=== PATIENT | male | born 1955 | race Caucasian/White ===

== ENCOUNTER → 2020-01-17 10:06 | Outpatient (CLI) | payer MEDICARE, SELFPAY ==
--- NOTE | 2020-01-17 10:45 | MRI_ITS ---
HISTORY: low back pain and bilat legs x 8 years EXAMINATION: MR Spine Lumbar W/O Contrast. 127 images TECHNIQUE: Multiplanar and multisequence MR images of the lumbar spine. IV Contrast dosage and agent: None. COMPARISON: X-rays of the lumbar spine are available from July 06, 2016. A CT scan of the abdomen and pelvis with sagittal and coronal 2-D reformats that also goes through the lumbar spine is available from July 06, 2013. FINDINGS: VERTEBRAE: Normal vertebral body heights, alignment and lordosis. Some Modic type endplate marrow edema is present on the abutting endplates of the L2-L3 level on the right side. Some fatty marrow endplate changes are present on the anterior left at the L2-L3 level. This disease has progressed since the 2014 CT. No expansile or destructive lesion. CORD: Normal visualized portions of the spinal cord and cauda equina, with the tip of the conus medullaris at the the L1-L2 level. No intradural or intramedullary soft tissue mass or epidural fluid collection. SOFT TISSUES: Hyperintense lesions on both kidneys statistically represent benign cysts. Tortuosity of the abdominal aorta without aneurysm. L1/L2: At the L1-L2 level facet arthropathy, ligamentum thickening contribute to mild spinal canal stenosis L2/L3: Facet arthropathy, ligamentum thickening, and disc protrusion contribute to severe spinal canal stenosis. All of the CSF is displaced out of the dural sac. Neural foraminal disease is also present, the disease is slightly greater on the left than right with possibly an extruded disc fragment. This extruded disc fragment measures 14 x 7 x 11 mm and extends cranially behind the left side of the L2 vertebral body It may be impinging the left L3 nerve in the lateral recess. L3/L4: Facet arthropathy, ligamentum thickening, and disc bulge cause mild spinal canal stenosis L4/L5: Facet arthropathy, ligamentum thickening, and small central disc protrusion cause severe spinal canal stenosis with displacement of all of the CSF out of the dural sac. The disease is slightly greater on the right than left. Both left and right L4-L5 neural foramina are narrowed as well. Due to the light paracentral position and the right L5 nerve could be impinging right lateral recess L5/S1: No disc bulge, central canal stenosis, or neural foraminal stenosis. MRI/Spine Lumbar (Routine) IMPRESSION: Severe spinal canal stenosis at the L2-L3 level due to facet arthropathy, ligamentum thickening, and disc protrusion. There is a left paracentral lateral extruded disc fragment extending up behind the L2 vertebral body measuring 14 x 7 x 11 mm possibly impinging the left L3 nerve in the lateral recess. Severe spinal canal stenosis at the L4-L5 level. This is due to facet arthropathy ligamental thickening in central disc protrusion. This disease is slightly greater on the right than left and may be impinging the right L5 nerve in the lateral recess. at 0235 Reported and signed by: Lennox Mejia MD Electronically Signed: Lennox Mejia MD at 2:34 EDT Tel , Service support ,
== END ==
PROVIDERS: PCP Internal Medicine; Referring Provider Internal Medicine; Visit Provider Internal Medicine
DX: M54.40 Lumbago with sciatica, unspecified side (principal)
CPT/HCPCS: 72148

== ENCOUNTER → 2021-03-17 13:27 | Outpatient (CLI) | payer MEDICARE, SELFPAY ==
[2021-03-17 15:16] LABS: Absolute Lymphocyte Count 2.42 X10^3/uL (0.83-4.51); Absolute Neutrophil Count 8.3 X10^3/uL (2.0-7.7); Basophil# 0.08 X10^3/uL; Basophil% 0.7 % (0-1); Eosinophil# 0.38 X10^3/uL; Eosinophils% 3.2 % (0-5); Hematocrit 43.2 % (40-54); Hemoglobin 14.5 g/dL (13.0-16.5); Lymphocyte # 2.42 X10^3/ul (0.83-4.51); Lymphocyte % 20.4 % (19-41); Mean Corp Hgb Conc 33.6 g/dL (32-36); Mean Corpuscular Hgb 32.3 pg (27.0-32.0); Mean Corpuscular Volume 96.2 fL (80-94); Mean Platelet Vol. 10.7 fl (6.2-12.0); Monocyte% 5.1 % (0-10); NRBC Flagged by Analyzer 0 % (0-5); Neutrophil # 8.28 X10^3/uL (2.7-7.7); Neutrophil % 69.9 % (47-70); Platelet Count 196 K/mm3 (150-450); RBC Distribution Width SD 42.8 fl (35.1-43.9); Red Blood Count 4.49 M/mm3 (4.6-6.2); White Blood Count 11.8 K/mm3 (4.4-11.0)
[2021-03-17 15:37] LABS: AST(SGOT) 9 U/L (15-37); Alanine Aminotransfer ALT/SGPT 16 U/L (16-61); Albumin, Serum 3.6 g/dL (3.2-5.0); Alkaline Phosphatase 70 U/L (45-117); Anion Gap 3 (5-15); BUN 14 mg/dL (7-18); BUN/Creat Ratio 17.9 RATIO (10-20); Calcium,Total 8.9 mg/dL (8.5-10.1); Chloride 104 mmol/L (98-107); Cholesterol 150 mg/dL (200); Creatinine, Serum 0.78 mg/dL (0.70-1.30); EST Glomerular Filtration Rate 106 mL/min (>60); Est Glom Filt Rate - Afr Amer 128 mL/min (>60); Globulin 3.7 g/dL (2.2-4.2); Glucose 104 mg/dL (74-106); High Density Lipoprotein 47 mg/dL; Potassium 4.8 mmol/L (3.5-5.1); Protein, Total 7.3 g/dL (6.4-8.2); Sodium Level 137 mmol/L (136-145); Triglycerides 106 mg/dL; Very Low Density Lipoprotein 21 mg/dL (5-40)
== END ==
PROVIDERS: PCP Internal Medicine; Referring Provider Internal Medicine; Visit Provider Internal Medicine
DX: E55.9 Vitamin D deficiency, unspecified (principal); E78.5 Hyperlipidemia, unspecified; I48.91 Unspecified atrial fibrillation
CPT/HCPCS: 36415; 80053; 80061; 82306; 85025

== ENCOUNTER 2021-04-28 13:09 | Outpatient (CLI) | payer MEDICARE, SELFPAY ==
--- NOTE | 2021-04-28 13:12 | RAD_ITS ---
STUDY: X-RAY - CERVICAL SPINE REASON FOR EXAM: Male, 65 years old. Neck pain and headache TECHNIQUE: 5 view(s) of the cervical spine were obtained. COMPARISON: None FINDINGS: Normal anterior atlantoaxial articulation. Normal odontoid process. There is straightening of the normal cervical lordosis. There is multi-level endplate spondylosis. There is multi-level degenerative disc disease with multilevel disc space narrowing. No instability in the flexion or extension views. The soft tissue structures are unremarkable. RAD/Cerv Spine 2 or 3 Views IMPRESSION: Multilevel degenerative changes, no acute findings Electronically Signed: Michael Argueta MD at 16:42 EST , Service support ,
== END 2021-04-28 23:59 | disposition short-term general hospital (02) ==
LOC: RAD 13:11
PROVIDERS: PCP Internal Medicine; Referring Provider Anesthesiology Pain Medicine; Visit Provider Anesthesiology Pain Medicine
DX: M50.30 Other cervical disc degeneration, unspecified cervical region (principal); M54.2 Cervicalgia
CPT/HCPCS: 72040

== ENCOUNTER 2021-05-21 13:06 | Outpatient (CLI) | payer MEDICARE, SELFPAY ==
--- NOTE | 2021-05-21 13:17 | MRI_ITS ---
STUDY: MRI CERVICAL SPINE WITH AND WITHOUT CONTRAST REASON FOR EXAM: Male, 65 years old. RADICULOPATHY tourettes TECHNIQUE: Standardized fat and water weighted pulse sequences were obtained in the sagittal and axial with and without I.V. administration of 15 ml of doteram contrast material. COMPARISON: None FINDINGS: Normal foramen magnum and brainstem-cervical cord junction. Normal craniovertebral junction. Normal anterior atlantoaxial articulation. Normal odontoid process. Normal cervical lordosis. Normal vertebral bodies and posterior osseous elements. C2-3: Normal endplates. Normal disc height and morphology. Normal central canal and intervertebral neuroforamina. C3-4: Loss of intervertebral disc height. There is endplate spondylosis of the vertebral body. Severe stenosis of the right intervertebral neuroforamina. There is bilateral facet arthropathy. Disc desiccation. C4-5: Loss of intervertebral disc height. There is endplate spondylosis of the vertebral body. Normal central canal and intervertebral neuroforamina. There is bilateral facet arthropathy. Disc desiccation. Posterior disc bulge. C5-6: Loss of intervertebral disc height. There is endplate spondylosis of the vertebral body. Normal central canal and intervertebral neuroforamina. There is bilateral facet arthropathy. Disc desiccation. Posterior disc bulge. Discogenic endplate changes. C6-7: Loss of intervertebral disc height. There is endplate spondylosis of the vertebral body. Severe stenosis of the right intervertebral neuroforamina. There is bilateral facet arthropathy. Disc desiccation. C7-T1: Normal endplates. Normal disc height, signal and morphology. Normal central canal and intervertebral neural foramina. Normal cervical cord. Normal visualized soft tissue structures. MRI/Spine Cervical W/WO Contrast IMPRESSION: Multilevel degenerative changes, as described above. There is right neural foraminal stenosis at C3-4 and C6-7. This is from degenerative changes. Electronically Signed: Bhupinder Moreno MD at 14:47 EST ,
[2021-05-21 13:30] LABS: CREATININE FINGERSTICK 0.7 mg/dL (0.70-1.30); EGFR FINGERSTICK > 60.0000 mL/min (>60)
== END 2021-05-21 23:59 | disposition short-term general hospital (02) ==
LOC: MRI 13:08
PROVIDERS: PCP Internal Medicine; Visit Provider Anesthesiology Pain Medicine
DX: M48.02 Spinal stenosis, cervical region (principal); M46.92 Unspecified inflammatory spondylopathy, cervical region; M47.22 Other spondylosis with radiculopathy, cervical region
CPT/HCPCS: 72156; A9575

== ENCOUNTER → 2021-10-07 | Outpatient (CLI) | payer MEDICARE, SELFPAY | END | disposition home or self-care (01) | LOC: LABSPEC 16:28 | PROVIDERS: PCP Internal Medicine; Visit Provider Urology | DX: N30.00 Acute cystitis without hematuria (principal) | CPT/HCPCS: 87077; 87086; 87088; 87186 ==

== ENCOUNTER → 2021-12-25 | Outpatient (CLI) | payer MEDICARE, SELFPAY | END | disposition home or self-care (01) | PROVIDERS: PCP Internal Medicine; Referring Provider Urology; Visit Provider Urology | DX: N30.00 Acute cystitis without hematuria (principal) | CPT/HCPCS: 87077; 87086; 87088 ==

== ENCOUNTER 2021-12-30 12:13 | Day surgery (SDC) | payer MEDICARE, SELFPAY ==
[2021-12-30] MEDS: Lactated Ringers 1,000 ML 15 ML IV (12:25)
[2021-12-30 12:34] VITALS: BP 126/58; PULSE 66; RESP 18; TEMP 36.6; O2SAT 93
--- NOTE | 2021-12-30 13:30 | COLBX_PTH ---
PATIENT: SHAREE PARISI LOC: EN U#:[id number] AGE/SX: 66/M ROOM: RE12/30/[address]: Dr. Dario Westbrook DO : 1955 BED: DIS: 12/30/2021 SPEC #: [id number] RECD: 12/30/21 15:07 STATUS: LESA PAREKHMagi #: [id number] TOYIN: 12/30/21 13:[address]: Dario Westbrook DEPT: SURGICAL PATHOLOGY RECD BY: Joey Qureshi ENTERED: 12/31/21 08:35 SP TYPE: COLON BX OTHR DR: Dr. Juanis Escobar DO Tissues: Sigmoid colon biopsy Procedures: Surgery Specimen Level IV HEADER OPERATION: Colonoscopy ? open access (MAC), electrohemostasis, biopsy PRE-OP DIAGNOSIS: Screening TISSUE SUBMITTED: Sigmoid polyp biopsy MICROSCOPIC DIAGNOSIS Sigmoid polyp, biopsy: Tubular adenoma. AM:laina 01/01/2022 MICROSCOPIC DESCRIPTION Slides are reviewed. GROSS DESCRIPTION Received in fixative is one container labeled with the patient's name and designated sigmoid polyp biopsy. The specimen consists of two irregular fragments of light kellogg soft tissue that in aggregate measure 0.6 x 0.3 x 0.2 cm. The specimen is totally submitted in one cassette. / SJ:laina 12/31/2021 TC:1 CPT: 31466
--- NOTE | 2021-12-30 13:31 | HP.PCM_ITS ---
HPI - General General Chief Complaint: Greening colonoscopy HPI Narrative SHAREE PARISI, is a 66 M who presents today for screening colonoscopy. He has a past medical history of CAD, Tourette syndrome, PAF on aspirin therapy that presents here for screening colonoscopy. He is not having any problems with his bowels. He is not having abdominal pain. Is not any cramping. He has not had any chest pain or shortness of breath. Overall he feels like he is in a good state of health. All other 16 review of systems are negative except as per body mentioned HPI. [facility] Medical History (Updated 12/23/21 @ 12:31 by Millie Alvarez) Alcohol use Anxiety Arthritis Back pain Benign prostatic hyperplasia without lower urinary tract symptoms [facility] follow-up encounter CPAP (continuous positive airway pressure) dependence Depression Gastro-esophageal reflux disease without esophagitis Hematuria, unspecified History of atrial fibrillation History of stress test Hyperlipidemia, unspecified Hypertension Injury of head and neck Irritable bowel syndrome with diarrhea Loss of hearing MVP (mitral valve prolapse) Nonrheumatic mitral (valve) prolapse Other fecal abnormalities Personal history of urinary calculi Prostate disease Smoker Tourettes disorder Vitamin D deficiency, unspecified Wears glasses Home Medications Omeprazole [Prilosec] 40 mg PO DAILY 02/23/13 [History Last Taken Unknown] buspirone 15 mg tablet 15 mg PO BID 02/23/13 [History Last Taken Unknown] citalopram 40 mg tablet 40 mg PO DAILY 02/23/13 [History Last Taken Unknown] diphenoxylate-atropine 2.5 mg-0.025 mg tablet 1 tab PO BID PRN PRN Diarrhea 02/23/13 [History Last Taken Unknown] gabapentin 300 mg capsule 400 mg PO TID 02/23/13 [History Last Taken Unknown] simvastatin 10 mg tablet 10 mg PO QHS 02/23/13 [History Last Taken Unknown] aspirin 81 mg tablet,delayed release 81 mg PO DAILY@0800 #30 TABLETS 02/25/13 [Rx Last Taken Unknown] multivitamin with folic acid 400 mcg tablet (Thera) 1 tab PO DAILYCM #30 TABLETS 02/25/13 [Rx Last Taken Unknown] metoprolol tartrate 25 mg tablet 25 mg PO BID 08/06/14 [History Last Taken 12/30/21] hydrocodone-acetaminophen 5-325mg 5mg-325mg ([place]) 1 ea PO Q6H PRN PRN Back pain #10 tabs 07/02/16 [Rx Last Taken Unknown] bupropion HCl 150 mg tablet,12 hr sustained-release (Wellbutrin SR) 150 mg PO BID 09/26/21 [History Last Taken Unknown] cholecalciferol (vitamin D3) 50 mcg (2,000 unit) capsule 50 mcg PO DAILY 09/26/21 [History Last Taken Unknown] dicyclomine 10 mg capsule 10 mg PO TID PRN Cramps 09/26/21 [History Last Taken Unknown] fish, borage, flaxseed oils-omega 3,6,9 comb no.1 1,200 mg capsule ([place] 3-6-9) 1 cap PO DAILY 09/26/21 [History Last Taken Unknown] loratadine 10 mg capsule (Claritin Liqui-Gel) 10 mg PO DAILY 09/26/21 [History Last Taken Unknown] tamsulosin 0.4 mg capsule (Flomax) 0.4 mg PO BID 09/26/21 [History Last Taken Unknown] Allergy/AdvReac Type Severity Reaction Status Date / Time No Known Allergies Allergy Verified 12/30/21 12:32 Family History (Updated 09/26/21 @ 11:32 by Berta Winter) Father Diabetes CHF (congestive heart failure) Mother Hypertension UTI (urinary tract infection) Surgical History (Updated 12/23/21 @ 12:31 by Millie Alvarez) History of heart artery stent Hx of colonoscopy Social History Smoking Status: Current every day smoker tobacco type: cigarettes ROS Review of Systems ROS Unobtainable: other Constitutional Constitutional: Denies fatigue, fever(s), poor appetite, weight gain or weight loss ENT HEENT: Denies mouth lesions Cardiovascular Cardiovascular: Denies abdominal bloating, abdominal edema or abdominal pain Respiratory/Chest Respiratory/Chest: Denies change in mental status, change in phlegm color, chest congestion or chest tightness Gastrointestinal Gastrointestinal: Denies belching, bloating, change in bowel habits, change in stool character, chewing difficulty, coffee ground emesis, constipation, cramping, diarrhea, dyspepsia, dysphagia, early satiety, excessive flatus, fecal incontinence, heartburn, hematemesis, hematochezia, hemorrhoids, loose stools, melena, nausea, odynophagia, rectal bleeding, tenesmus, vomiting or weight changes Genitourinary Genitourinary: Denies abdominal discomfort, burning urination or itching Musculoskeletal Musculoskeletal: Reports as per HPI; Denies muscle weakness or myalgias Integumentary Integumentary: Denies jaundice Neurologic Neurologic: Denies lack of coordination or weakness Psychiatric Psychiatric: Denies confusion, depression, memory loss, mood swings, paranoia or suicidal ideation Endocrine Endocrinology: Denies systems reviewed and no addt'l complaints, except as documented Hematologic/Lymphatic Hematologic/Lymphatic: Denies anemia, easy bleeding, easy bruising or lymphadenopathy Allergic/Immunologic Allergic/Immunologic: Denies systems reviewed and no addt'l complaints, except as documented Vital Signs Vital Signs Vital Signs: 12/30/21 12:34 12/30/21 12:34 Temperature 97.9 F Temperature Source Temporal Pulse Rate 66 Respiratory Rate 18 Respiratory Pattern Normal Blood Pressure 126/58 H Blood Pressure Mean 80 Blood Pressure Source Monitor Blood Pressure Position Semi-Fowlers Blood Pressure Location Left Arm Pulse Ox 93 Oxygen Delivery Method Room Air Physical Exam Const alert General Appearance: cooperative Orientation / Consciousness: oriented to person HEENT hearing grossly normal bilaterally Head and Scalp: normal to inspection Face and Sinus: face symmetric Nose: external nose normal Mouth: oral and palatal mucosa normal Eyes conjunctivae normal General Eye: normal appearance of both eyes Neck full ROM General: normal visual inspection Lymph Lymphatic: no lymphadenopathy noted Chest inspection of chest normal and palpation of chest normal Chest: symmetrical chest wall rise Resp normal respiratory effort Effort and Inspection: able to speak in complete sentences Cardio regular rate GI non-distended Percussion: normal to percussion Rectal Exam: deferred Neuro Speech: speech normal Gait (Neuro): normal gait Assessment & Plan Assessment/Plan (1) Encounter for screening for malignant neoplasm of colon: PLAN: He was explained alternatives, and if it is occluded not withstanding bleeding, infection, sepsis, perforation, need for emergent surgery and . He will have an ASA of 3.
[2021-12-30 14:15] VITALS: BP 114/59; BP 126/58; PULSE 67; RESP 18; TEMP 36.2; O2SAT 95
--- NOTE | 2021-12-30 14:17 | OP.CCLET_ITS ---
12/30/2021 Juanis Escobar [address] [place] [address] Re : Colonoscopy procedure for Harpreet Rodriguez Dear Dr. Escobar This procedure was performed on Thursday, December 30, 2021. My impressions and recommendations are as follows: Impressions : - One 5 mm polyp in the sigmoid colon, removed with a cold biopsy forceps. Resected and retrieved. - Diverticulosis in the recto-sigmoid colon, in the sigmoid colon, in the descending colon and at the splenic flexure. - Two bleeding colonic angiodysplastic lesions. Treated with a heater probe. Recommendations : - Discharge patient to home. - Resume previous diet. - Continue present medications. - Await pathology results. - Repeat colonoscopy in 5 years for surveillance. - Return to GI office. My findings are described in the full procedure note, which is enclosed. If I can be of further assistance, please feel free to contact me at . Sincerely, Dario Westbrook, 12/30/2021 2:16:28 PM This report has been signed electronically.
--- NOTE | 2021-12-30 14:17 | OP.COLON_ITS ---
Patient Name: Harpreet Rodriguez Procedure Date: 12/30/2021 1:40 PM Date of : 1955 Age: 66 Procedure: Colonoscopy Indications: Screening for colorectal malignant neoplasm Providers: Dario Westbrook DO Medicines: Monitored Anesthesia Care Patient Profile: This is a 66 year old male. Refer to note in patient chart for documentation of history and physical. Last Colonoscopy: 5 years ago. Complications: No immediate complications. Procedure: Pre-Anesthesia Assessment: - Prior to the procedure, a History and Physical was performed, and patient medications and allergies were reviewed. The patient is competent. The risks and benefits of the procedure and the sedation options and risks were discussed with the patient. All questions were answered and informed consent was obtained. Patient identification and proposed procedure were verified by the physician in the pre-procedure area. Mental Status Examination: alert and oriented. Airway Examination: normal oropharyngeal airway and neck mobility. Respiratory Examination: clear to auscultation. CV Examination: normal. Prophylactic Antibiotics: The patient does not require prophylactic antibiotics. Prior Anticoagulants: The patient has taken no previous anticoagulant or antiplatelet agents. ASA Grade Assessment: II - A patient with mild systemic disease. After reviewing the risks and benefits, the patient was deemed in satisfactory condition to undergo the procedure. The anesthesia plan was to use monitored anesthesia care (MAC). Immediately prior to administration of medications, the patient was re-assessed for adequacy to receive sedatives. The heart rate, respiratory rate, oxygen saturations, blood pressure, adequacy of pulmonary ventilation, and response to care were monitored throughout the procedure. The physical status of the patient was re-assessed after the procedure. After I obtained informed consent, the scope was passed under direct vision. Throughout the procedure, the patient's blood pressure, pulse, and oxygen saturations were monitored continuously. The pediatric colonoscope was introduced through the anus and advanced to the cecum, identified by appendiceal orifice and ileocecal valve. The colonoscopy was performed without difficulty. The patient tolerated the procedure well. The quality of the bowel preparation was good. Scope In: 1:52:37 PM Scope Out: 2:10:03 PM Total Procedure Duration Time 0 hours 17 minutes 26 seconds Findings: The perianal and digital rectal examinations were normal. A 5 mm polyp was found in the sigmoid colon. The polyp was sessile. The polyp was removed with a cold biopsy forceps. Resection and retrieval were complete. Verification of patient identification for the specimen was done. Estimated blood loss was minimal. Multiple small and large-mouthed diverticula were found in the recto-sigmoid colon, sigmoid colon, descending colon and splenic flexure. Two large localized angiodysplastic lesions with bleeding were found in the cecum. Coagulation for hemostasis using heater probe was successful. Estimated blood loss was minimal. Impression: - One 5 mm polyp in the sigmoid colon, removed with a cold biopsy forceps. Resected and retrieved. - Diverticulosis in the recto-sigmoid colon, in the sigmoid colon, in the descending colon and at the splenic flexure. - Two bleeding colonic angiodysplastic lesions. Treated with a heater probe. Recommendation: - Discharge patient to home. - Resume previous diet. - Continue present medications. - Await pathology results. - Repeat colonoscopy in 5 years for surveillance. - Return to GI office. Procedure Code(s): --- Professional --- 20505, 59, Colonoscopy, flexible; with control of bleeding, any method 46972, Colonoscopy, flexible; with biopsy, single or multiple CPT copyright 2017 [employer]. All rights reserved. The codes documented in this report are preliminary and upon clearance rep review may be revised to meet current compliance requirements. Dario Westbrook DO 12/30/2021 2:16:28 PM This report has been signed electronically. Number of Addenda: 0 Note Initiated On: 12/30/2021 1:40 PM
[2021-12-30 14:20] VITALS: BP 100/49; BP 126/58; PULSE 67; RESP 16; O2SAT 95
[2021-12-30 14:25] VITALS: BP 122/63; BP 126/58; PULSE 70; RESP 16; O2SAT 98
[2021-12-30 14:30] VITALS: BP 124/68; BP 126/58; PULSE 63; RESP 16; TEMP 36.7; O2SAT 97
[2021-12-30 14:49] VITALS: BP 126/58
== END 2021-12-30 15:03 | disposition home or self-care (01) ==
LOC: EN 12:14 → AC 12:15
PROVIDERS: PCP Internal Medicine; Referring Provider Internal Medicine; Visit Provider Internal Medicine Gastroenterology
PROC: 0DJD8ZZ Inspection of Lower Intestinal Tract, Via Natural or Artificial Opening Endoscopic (ICD-10-PCS; CPT 45378; principal; 2021-12-30 13:25)
DX: Z12.11 Encounter for screening for malignant neoplasm of colon (principal); D12.5 Benign neoplasm of sigmoid colon; K57.30 Diverticulosis of large intestine without perforation or abscess without bleeding; E78.5 Hyperlipidemia, unspecified; F17.210 Nicotine dependence, cigarettes, uncomplicated; I10 Essential (primary) hypertension; I25.10 Atherosclerotic heart disease of native coronary artery without angina pectoris; F41.9 Anxiety disorder, unspecified; F32.A Depression, unspecified; K21.9 Gastro-esophageal reflux disease without esophagitis; E55.9 Vitamin D deficiency, unspecified; M50.30 Other cervical disc degeneration, unspecified cervical region; N40.0 Benign prostatic hyperplasia without lower urinary tract symptoms; Z79.899 Other long term (current) drug therapy; Z79.82 Long term (current) use of aspirin
CPT/HCPCS: 45380; 45382; 88305; J7120; J2405

== ENCOUNTER → 2022-03-18 | Outpatient (CLI) | payer MEDICARE, SELFPAY ==
--- NOTE | 2022-03-18 12:41 | RAD_ITS ---
STUDY: X-RAY - LUMBAR SPINE REASON FOR EXAM: Male, 66 years old. Fall. Pain. TECHNIQUE: 2 view(s) of the lumbar spine were obtained. COMPARISON: July 06, 2016. FINDINGS: Marked osteopenia. Normal lumbar lordosis. Mild levoscoliosis. There is a normal alignment of the vertebrae. Mild anterior wedging of the L4 vertebral body since the prior study, age not determined. Diffuse facet sclerosis. Diffuse intervertebral disc space narrowing with osteophyte formation most marked L2-3. Vascular calcifications. RAD/Lumbar Spine 2 or 3 Views IMPRESSION: Osteopenia with diffuse moderate lumbosacral spondylosis. New mild anterior wedging of the L4 vertebral body, age not determined. Electronically Signed: Isreal Angeles, at 13:31 EST ,
== END | disposition home or self-care (01) ==
LOC: RAD 12:35
PROVIDERS: PCP Internal Medicine; Referring Provider Anesthesiology Pain Medicine; Visit Provider Anesthesiology Pain Medicine
DX: M51.36 Other intervertebral disc degeneration, lumbar region (principal); M51.37 Other intervertebral disc degeneration, lumbosacral region
CPT/HCPCS: 72100

== ENCOUNTER → 2022-04-30 | Outpatient (CLI) | payer MEDICARE, SELFPAY ==
[2022-04-30 13:50] LABS: Amphetamine Urine VISTA NEGATIVE (<1000 ng/mL); Barbiturate Urine VISTA NEGATIVE (< 200 ng/mL); Benzodiazepine Urine VISTA NEGATIVE (< 200 ng/mL); Cocaine Urine VISTA NEGATIVE (< 300 ng/mL); Ecstacy Urine VISTA POSITIVE (< 500 ng/mL); Methadone Urine VISTA NEGATIVE (< 300 ng/mL); PCP Urine VISTA NEGATIVE (< 25 ng/mL); THC Urine VISTA NEGATIVE (< 50 ng/mL); Vista UDS pH Range 6
== END | disposition home or self-care (01) ==
LOC: LAB 13:01
PROVIDERS: PCP Internal Medicine; Referring Provider Anesthesiology Pain Medicine; Visit Provider Anesthesiology Pain Medicine
DX: F11.20 Opioid dependence, uncomplicated (principal)
CPT/HCPCS: 80307

== ENCOUNTER → 2022-05-02 | Outpatient (CLI) | payer MEDICARE, SELFPAY ==
--- NOTE | 2022-05-02 10:17 | MRI_ITS ---
MRI of the lumbar spine: Indication: back pain without injury Comparison study January 17, 2020 TECHNIQUE: MRI of the lumbar spine was performed in the sagittal and axial projections utilizing T1-T2 and STIR imaging sequences. FINDINGS: No evidence for acute fracture or subluxation. Conus medullaris is unremarkable and terminates at T12-L1 L1-2: The disc space height is well-maintained however there is desiccation of the disc and small left foraminal disc protrusion. Normal facet joints. Normal central canal and bilateral lateral recesses. Mild right neural foraminal stenosis. L2-3: Severely narrowed disc space with degenerative endplate changes. Desiccation of the disc and mild annular bulge with right posterolateral/foraminal disc protrusion.. Facet arthropathy slightly worse on the right and mild thickening of ligamenta flava. Moderate narrowing the central canal and bilateral lateral recesses. Moderate left neural foraminal stenosis and severe narrowing on the right L3-4: Normal disc space height with degenerative endplate changes and normal hydration of the disc with mild annular bulge. Facet arthropathy and mild thickening of ligamenta flava slightly worse on the left. Normal central canal. Normal right lateral recess and mild left lateral recess stenosis. Normal right nerve root foramen and moderate left neural foraminal stenosis L4-5: Narrowed disc space with desiccation of the disc and moderate annular bulge. Facet arthropathy and thickening of ligamenta flava. Moderate central canal stenosis. Moderate to severe bilateral lateral recess stenosis and severe neural foraminal stenosis exaggerated by shortened pedicles. L5-S1: Normal disc height space height hydration of the disc and morphology. Facet arthropathy and thickening of ligamenta flava slightly more pronounced on the left. Normal central canal. Mild left lateral recess stenosis. Normal right lateral recess and bilateral neuroforamina There is interval progression of the degenerative changes since prior exam most pronounced at L2-3 and L4-5. MRI/Spine Lumbar (Routine) IMPRESSION: No evidence for acute fracture or subluxation. Moderate spondylosis and multilevel spinal stenosis secondary to disc disease and facet arthropathy most severe at L4-5 exaggerated by shortened pedicles Electronically Signed: Leonard Cameron MD at 18:28 EST ,
== END | disposition home or self-care (01) ==
LOC: MRI 10:12
PROVIDERS: PCP Internal Medicine; Referring Provider Anesthesiology Pain Medicine; Visit Provider Anesthesiology Pain Medicine
DX: M81.0 Age-related osteoporosis without current pathological fracture (principal)
CPT/HCPCS: 72148

== ENCOUNTER → 2022-07-07 | Outpatient (CLI) | payer MEDICARE, SELFPAY ==
--- NOTE | 2022-07-07 15:28 | MRI_ITS ---
EXAM: MR LEFT UPPER EXTREMITY WITHOUT INTRAVENOUS CONTRAST, SHOULDER CLINICAL INDICATION: rule out cuff tear, pos drop arm sign. TECHNIQUE: Multiplanar and multisequence MR images of the left shoulder without intravenous contrast. This report was created using [employer] report Beta[employer]ity technology. COMPARISON: None. FINDINGS: ARTIFACTS: Motion artifact limits assessment. TENDONS: SUPRASPINATUS: Full-thickness full width tearing of the supraspinatus tendon with failure at the footprint and medial retraction of torn tendon fibers to the joint line. INFRASPINATUS: Full-thickness full width tearing of the infraspinatus tendon with failure at the footprint and medial retraction of torn tendon fibers to the joint line. SUBSCAPULARIS: At least high-grade tearing of the superior fibers of the subscapularis tendon with associated medial subluxation of the tendinotic/thickened long head of the biceps tendon onto the lesser tubercle. Fluid is seen to distend the long head of the biceps tendon sheath. TERES MINOR: Unremarkable. Intact. BICEPS BRACHII, LONG HEAD: See above. LIGAMENTS: GLENOHUMERAL: Unremarkable. Intact. MUSCLES: Unremarkable. No rotator cuff muscle atrophy. FLUID: Large glenohumeral joint effusion freely communicating with the subacromial/subdeltoid bursa through the full thickness rotator cuff tears. Synovitis at the axillary pouch. CARTILAGE: Unremarkable. Articular cartilage intact. GLENOID LABRUM: Unremarkable. Intact, limited evaluation on non-arthrographic exam. BONES/JOINTS: Question posterior inferior and possibly posterior labral tearing. Labrum can be further investigated with MR arthrography if concerned. Posterior subluxation of the humeral head relative to glenoid indication glenohumeral instability. Type II acromion with curved undersurface. No subacromial enthesophyte. No os acromiale. There is thickening of the coracoacromial ligament. Moderate hypertrophic degenerative changes of the acromioclavicular joint. OTHER SOFT TISSUES: Unremarkable. No rotator interval edema. MRI/Upper Ext Joint Only(Routine) IMPRESSION: 1. Full-thickness full width tearing of the supraspinatus and infraspinatus tendons with failure at the footprint and medial retraction of torn tendon fibers to the joint line. 2. At least high-grade tearing of the superior fibers of the subscapularis tendon with associated medial subluxation of the tendinotic/thickened long head of the biceps tendon onto the lesser tubercle. 3. Question posterior inferior and possibly posterior labral tearing. Labrum can be further investigated with MR arthrography if concerned. 4. Posterior subluxation of the humeral head relative to glenoid indication glenohumeral instability. Electronically Signed: Cosmo Thompson MD at 0:49 EDT ,
== END | disposition home or self-care (01) ==
LOC: MRI 15:28
PROVIDERS: PCP Internal Medicine; Visit Provider Orthopaedic Surgery Sports Medicine
DX: M25.512 Pain in left shoulder (principal)
CPT/HCPCS: 73221

== ENCOUNTER → 2023-09-01 | Outpatient (CLI) | payer MEDICARE, SELFPAY ==
[2023-09-01 16:50] LABS: Amphetamine Urine VISTA NEGATIVE (<1000 ng/mL); Barbiturate Urine VISTA NEGATIVE (< 200 ng/mL); Benzodiazepine Urine VISTA NEGATIVE (< 200 ng/mL); Cocaine Urine VISTA NEGATIVE (< 300 ng/mL); Ecstacy Urine VISTA POSITIVE (< 500 ng/mL); Methadone Urine VISTA NEGATIVE (< 300 ng/mL); PCP Urine VISTA NEGATIVE (< 25 ng/mL); THC Urine VISTA NEGATIVE (< 50 ng/mL); Vista UDS pH Range 6
== END | disposition home or self-care (01) ==
PROVIDERS: PCP Internal Medicine; Referring Provider Anesthesiology Pain Medicine; Visit Provider Anesthesiology Pain Medicine
DX: F11.20 Opioid dependence, uncomplicated (principal)
CPT/HCPCS: 80307

== ENCOUNTER 2024-08-14 10:06 | Observation (INO) | payer MEDICARE, SELFPAY ==
[2024-08-14] VITALS (11 sets, daily range): BP systolic 112–128; BP diastolic 55–68; PULSE 57–80; RESP 14–18; TEMP 36–36.8; O2SAT 92–99; BMI 25.9; BMI 25.7
--- NOTE | 2024-08-14 10:34 | RAD_ITS ---
PROCEDURE: CHEST 1 VIEW (PORTABLE) 08/14/2024 REASON FOR EXAM: CHEST PAIN TECHNIQUE: Frontal view of the chest. COMPARISON: None FINDINGS: Hardware: EKG electrodes are seen. Heart: Mild cardiomegaly. Lungs: Elevation of the right hemidiaphragm. No acute infiltrate is seen. Bones: Degenerative changes are identified within the thoracic spine. Other: Degenerative changes of both shoulder joints. RAD/Chest 1 View (Portable) IMPRESSION: Cardiomegaly. Elevation of the right hemidiaphragm. The lungs are clear. Reading Location: [place] [address]
--- NOTE | 2024-08-14 10:35 | EKG12_ITS ---
Test Reason : CP Blood Pressure : */* mmHG Vent. Rate : 57 BPM Atrial Rate : 57 BPM P-R Int : 152 ms QRS Dur : 94 ms QT Int : 422 ms P-R-T Axes : 50 -31 5 degrees QTcB Int : 410 ms Sinus bradycardia with sinus arrhythmia Left axis deviation Minimal voltage criteria for LVH, may be normal variant ( R in aVL ) Abnormal ECG Confirmed by EUN BARRAGAN, LAN ([id number]), writer editor LAURIE MEDINA ([id number]) on 08/16/2024 8:17:39 AM Referred By: THAO/CASSANDRA Confirmed By: LAN HAQ MD
--- NOTE | 2024-08-14 10:36 | ED.VIS.CHEST ---
HPI History of Present Illness Chief Complaint: Chest Pain Informant: patient Narrative Narrative: 69-year-old male presenting to the emergency department with chief complaint of chest pain. Patient states that when he woke at 830 this morning he had a pain in the right side of his chest. He states he feels towards the right arm. Nothing seems to make it better or worse. He states that he initially described it as somebody trying to board into his chest but now is more just pain. He states it is seems to be near his pain patch that he wears on his right pectoralis muscle. Patient notes a remote history of A-fib but not in the past 20 years. He is not on anticoagulants. He has chronic back pain. He tried Tums as well as a Mcdaniels with no relief. Patient denies a prior history of DVT or PE. No known history of malignancy. He states he is an occasional smoker. Patient states he has a history of Tourette's and when he becomes stressed his Tourette's acts out and that he would like something to help him relax. Patient notes he has had some sinus drainage recently which he notes to environmental allergy. Patient notes remote history of coronary artery disease and stent placed reportedly had a COVID. [facility] Medical History Left rotator cuff tear Left shoulder pain Loss of hearing Wears glasses Depression Anxiety Tourettes disorder Alcohol use Arthritis Prostate disease Injury of head and neck Blackout Smoker CPAP (continuous positive airway pressure) dependence Back pain History of stress test Cardiology follow-up encounter History of atrial fibrillation MVP (mitral valve prolapse) Hypertension Vitamin D deficiency, unspecified Hyperlipidemia, unspecified Nonrheumatic mitral (valve) prolapse Gastro-esophageal reflux disease without esophagitis Irritable bowel syndrome with diarrhea Benign prostatic hyperplasia without lower urinary tract symptoms Other fecal abnormalities Hematuria, unspecified Personal history of urinary calculi Home Medications ?Medication ?Instructions ?Recorded ?Last Taken ?Type buspirone 15 mg tablet 15 mg PO BID 02/23/13 08/14/24 History citalopram 40 mg tablet 40 mg PO DAILY 02/23/13 08/14/24 History diphenoxylate-atropine 2.5 1 tab PO BID PRN PRN Diarrhea 02/23/13 Unknown History mg-0.025 mg tablet simvastatin 10 mg tablet 10 mg PO QHS 02/23/13 08/13/24 History aspirin 81 mg tablet,delayed 81 mg PO DAILY@0800 #30 TABLETS 02/25/13 08/14/24 Rx release metoprolol tartrate 25 mg tablet 25 mg PO BID 08/06/14 08/14/24 History bupropion HCl 150 mg tablet,12 hr 150 mg PO BID 09/26/21 08/14/24 History sustained-release (Wellbutrin SR) cholecalciferol (vitamin D3) 50 50 mcg PO DAILY 09/26/21 08/13/24 History mcg (2,000 unit) capsule dicyclomine 10 mg capsule 10 mg PO TID PRN Cramps 09/26/21 Unknown History fish, borage, flaxseed oils-omega 1 cap PO DAILY 09/26/21 08/13/24 History 3,6,9 comb no.1 1,200 mg capsule ([place] 3-6-9) loratadine 10 mg capsule (Claritin 10 mg PO DAILY 09/26/21 08/13/24 History Liqui-Gel) buprenorphine 5 mcg/hour weekly 1 patch transdermal QWEEK 08/14/24 08/10/24 History transdermal patch gabapentin 400 mg capsule See Rx Instructions PO .COMPLEX 08/14/24 08/14/24 History PAIN hydrocodone-acetaminophen 5-325mg 1 ea PO Q6H PRN Back pain 08/14/24 08/14/24 History 5mg-325mg multivitamin with folic acid 400 1 tab PO DAILY SUPPLEMENT 08/14/24 08/13/24 History mcg tablet (Thera) solifenacin 10 mg tablet 10 mg PO DAILY 08/14/24 08/13/24 History tadalafil 5 mg tablet 5 mg PO DAILY 08/14/24 08/13/24 History Allergy/AdvReac Type Severity Reaction Status Date / Time No Known Allergies Allergy Verified 11/18/23 13:45 Family History Father Diabetes CHF (congestive heart failure) Mother Hypertension UTI (urinary tract infection) Surgical History Hx of colonoscopy History of heart artery stent Social History Smoking Status: Current some day smoker tobacco type: cigarettes ROS ROS ED Constitutional Constitutional ED: Denies chills, fever(s) or weight loss Eyes Eyes: Denies change in vision or diplopia ENT ENT ED: Reports rhinorrhea; Denies ear pain or sore throat Cardiovascular Cardiovascular: Reports as per HPI and chest pain; Denies orthopnea, palpitations or racing heartbeat Respiratory/Chest Respiratory/Chest: Denies cough, dyspnea or orthopnea Gastrointestinal Gastrointestinal: Denies abdominal pain, diarrhea, nausea or vomiting Genitourinary Genitourinary ED: Denies dysuria, hematuria or urinary frequency Musculoskeletal Musculoskeletal: Reports back pain; Denies arthralgias or myalgias Integumentary Denies abscess or rash Neurologic Neurologic: Denies headache(s) or weakness Psychiatric Psychiatric: Denies anxiety, depression, suicidal ideation or suicidal thoughts Endocrine Endocrinology: Denies polydipsia, polyphagia or polyuria Allergic/Immunologic Allergic/Immunologic ED: Denies mouth swelling, tongue swelling or urticaria EXAM Physical Exam Const Vital Signs: 08/14/24 10:07 08/14/24 11:31 08/14/24 12:02 Temperature 96.8 F L Temperature Source Temporal Pulse Rate 72 60 63 Respiratory Rate 18 17 18 Blood Pressure 127/68 H 119/57 L 122/64 H Blood Pressure Mean 87 77 83 Pulse Ox 99 92 94 Oxygen Delivery Method Room Air Room Air 08/14/24 13:00 Temperature Temperature Source Pulse Rate 57 L Respiratory Rate 14 Blood Pressure 112/55 L Blood Pressure Mean 74 Pulse Ox 95 Oxygen Delivery Method Positive well nourished and well developed General Appearance ED: well developed and NAD HEENT Reports normocephalic, head/scalp atraumatic and moist mucous membranes Eyes PERRL and EOMs intact bilaterally Neck no lymphadenopathy, supple and no JVD Resp normal respiratory effort and clear to auscultation bilaterally Cardio regular rate, regular rhythm and no murmurs GI normal to inspection, nondistended, normoactive bowel sounds and non-tender Palpation: soft Back/Spine no CVA tenderness and normal ROM Extremity normal to inspection General Extremety ED: Negative for edema General Extremity: Negative for edema Neuro oriented x3 and CN's II-XII intact bilaterally Sensorium / Orientation: alert Motor Exam: strength 5/5 throughout Psych mental status grossly normal Mood & Affect: Negative for depressed or tearful Skin no rashes or lesions noted and no wounds Heart Score History: Slightly/Non-Suspicious ECG: Normal Age: >/= 65 years Risk Factors: >/= 3 Risk Factors or History of CAD Troponin: >/=3 x Normal Limit Score: 6 MDM MDM MDM Narrative Medical decision making narrative: Differential diagnosis includes but not limited to acute coronary syndrome pulmonary embolism aortic dissection pneumonia pleurisy pneumothorax pleural effusion shingles chest wall pain Initial EKG demonstrates a sinus bradycardia with a ventricular rate of 57 bpm. Initial troponin is 23 with a delta at 197. Normal LFTs. Normal creatinine. White count slightly elevated nonspecifically at 13.8 with a hemoglobin of 15.8. My independent interpretation of the chest x-ray is no acute process. A repeat EKG does not demonstrate any significant change from the initial. He was given aspirin. He also received a dose of Toradol and Ativan which did help his discomfort. History & Record Review Discussion w/independent historian: Patient and Family Additional record(s) reviewed:: Prior inpatient record, Prior ED visit and Prior labs Lab Data Attestation: I reviewed the patient's lab results. Labs: Laboratory Results - last 24 hr 08/14/24 08/14/24 10:15 12:15 WBC 13.8 H RBC 4.77 Hgb 15.8 Hct 44.0 MCV 92.2 MCH 33.1 H MCHC 35.9 RDW Std Deviation 42.1 RDW Coeff of Jacy 12.5 Plt Count 203 MPV 10.7 Immature Gran % (Auto) 1.000 H Neut % (Auto) 65.8 Lymph % (Auto) 24.0 [place] % (Auto) 6.8 Eos % (Auto) 1.7 Baso % (Auto) 0.7 Absolute Neuts (auto) 9.1 H Absolute Lymphs (auto) 3.30 Nucleated RBC % 0 PT 13.0 INR 1.0 APTT 31.1 D-Dimer Quant (PE/DVT) 0.27 Sodium 141 Potassium 4.2 Chloride 101 Carbon Dioxide 24.7 Anion Gap 16 H BUN 19 Creatinine 1.02 Estim Creat Clear Calc 70.57 Est GFR (MDRD) Non-Af 80 BUN/Creatinine Ratio 19.0 Glucose 132 H Calcium 10.2 Total Bilirubin 0.50 Direct Bilirubin 0.17 AST 17 ALT 10 Alkaline Phosphatase 77 Troponin T High Sens 23 H Troponin T Hi Sens 2 Hr 197 H* Total Protein 7.3 Albumin 4.3 Globulin 3.1 Radiography Diagnostic Testing: Clinical Impression(s) from Imaging Studies Chest X-Ray 08/14/24 10:34 IMPRESSION: Cardiomegaly. Elevation of the right hemidiaphragm. The lungs are clear. Reading Location: [place] [address] EKG Initial EKG: Attestation: I personally reviewed and interpreted this EKG as follows: Comments: sinus bradycardia with a ventricular rate of 57 bpm. Management Discussion w/another healthcare provider: Hospitalist (Dr Karimi) Discharge Plan Dx/Rx/DC Orders Clinical Impression: Chest pain, Elevated troponin Disposition Disposition: Acute Care Hospital [facility]
[2024-08-14 10:42] LABS: Absolute Neutrophil Count 9.1 X10^3/uL (2.0-7.7); Basophil# 0.09 X10^3/uL; Basophil% 0.7 % (0-1); Eosinophil# 0.24 X10^3/uL; Eosinophils% 1.7 % (0-5); Hemoglobin 15.8 g/dL (13.0-16.5); Mean Corp Hgb Conc 35.9 g/dL (32-36); Mean Corpuscular Hgb 33.1 pg (27.0-32.0); Mean Corpuscular Volume 92.2 fL (80-94); Mean Platelet Vol. 10.7 fl (6.2-12.0); Monocyte# 0.93 X10^3/uL; Monocyte% 6.8 % (0-10); NRBC Flagged by Analyzer 0 % (0-5); Neutrophil # 9.07 X10^3/uL (2.7-7.7); Neutrophil % 65.8 % (47-70); Platelet Count 203 K/mm3 (150-450); RBC Distribution Width CV 12.5 % (11.6-14.6); RBC Distribution Width SD 42.1 fl (35.1-43.9); Red Blood Count 4.77 M/mm3 (4.6-6.2); White Blood Count 13.8 K/mm3 (4.4-11.0)
[2024-08-14] MEDS: Ketorolac 15 MG/ML Vial IV (10:48)
[2024-08-14] MEDS: Lorazepam 2 MG/ML WCH Syringe 0.5 MG IV (10:49)
[2024-08-14 10:57] LABS: D-Dimer Quantitative (DVT/PE) 0.27 FEU/ug/m (0.27-0.49)
[2024-08-14 11:03] LABS: Partial Thromboplast Time 31.1 Seconds (24.1-36.2)
[2024-08-14 11:28] LABS: Troponin T High Sensitivity 23 ng/L (<=22)
[2024-08-14 12:24] LABS: AST(SGOT) 17 U/L (<=37); Alanine Aminotransfer ALT/SGPT 10 U/L (<=46); Albumin, Serum 4.3 g/dL (3.4-4.8); Alkaline Phosphatase 77 U/L (40-129); Anion Gap 16 (5-15); BUN 19 mg/dL (4-19); Bilirubin, Direct 0.17 mg/dL (0.00-0.30); Calcium,Total 10.2 mg/dL (7.6-11.0); Carbon Dioxide 24.7 mmol/L (21.0-32.0); Chloride 101 mmol/L (98-108); Creatinine, Serum 1.02 mg/dL (0.70-1.20); EST Glomerular Filtration Rate 80 (>60); Estimated Creatinine Clearance 70.57 ml/min (50-250); Globulin 3.1 g/dL (2.2-4.2); Glucose 132 mg/dL (70-99); Potassium 4.2 mmol/L (3.3-5.1); Protein, Total 7.3 g/dL (5.9-8.4); Sodium Level 141 mmol/L (133-145)
[2024-08-14 13:17] LABS: Troponin T High Sens 2 HR 197 ng/L (<=22)
--- NOTE | 2024-08-14 13:24 | EKG12_ITS ---
Test Reason : REPEAT Blood Pressure : */* mmHG Vent. Rate : 54 BPM Atrial Rate : 54 BPM P-R Int : 160 ms QRS Dur : 82 ms QT Int : 398 ms P-R-T Axes : 47 -30 -3 degrees QTcB Int : 377 ms Sinus bradycardia with sinus arrhythmia Left axis deviation Inferior infarct , age undetermined Abnormal ECG Confirmed by EUN BARRAGAN, LAN ([id number]), editorial writer LAURIE MEDINA ([id number]) on 08/16/2024 8:17:56 AM Referred By: Confirmed By: LAN HAQ MD
[2024-08-14] MEDS: Aspirin 325 MG Tablet PO (13:28)
--- NOTE | 2024-08-14 14:04 | PCM.HP.STD ---
HPI - General General Date of Admission: 08/14/24 Date of Service: 08/14/24 Chief Complaint: Chest pain HPI Narrative SHAREE PARISI, is a 69 M with a history of coronary artery disease with stenting in 2009, Tourette syndrome, anxiety, chronic pain who presented to [facility] ED 08/14/2024 with chest pain. Patient's pain started this morning on his right sided and radiated to his right arm, it did not sound cardiac in nature so initially he received Toradol and lorazepam and did initially have complete resolution of symptoms but first troponin was 23 and repeat was 197 so hospitalist contacted for admission for chest pain rule out. Patient evaluated bedside and reports the right sided chest pain that started this morning and said it felt like the whole was being boring to him and it radiated to his right shoulder, he thought it was GERD but it was not relieved with Pepcid and Tums, did initially have improvement with the above interventions however it is started to return though presently is not radiating, denies any shortness of breath, reports it has been many years since he had any kind of stress test or other interventions, did have a stent back in 2009 at [facility]. [facility] Medical History Left rotator cuff tear Left shoulder pain Loss of hearing Wears glasses Depression Anxiety Tourettes disorder Alcohol use Arthritis Prostate disease Injury of head and neck Blackout Smoker CPAP (continuous positive airway pressure) dependence Back pain History of stress test Cardiology follow-up encounter History of atrial fibrillation MVP (mitral valve prolapse) Hypertension Vitamin D deficiency, unspecified Hyperlipidemia, unspecified Nonrheumatic mitral (valve) prolapse Gastro-esophageal reflux disease without esophagitis Irritable bowel syndrome with diarrhea Benign prostatic hyperplasia without lower urinary tract symptoms Other fecal abnormalities Hematuria, unspecified Personal history of urinary calculi Home Medications ?Medication ?Instructions ?Recorded ?Last Taken ?Type buspirone 15 mg tablet 15 mg PO BID 02/23/13 08/14/24 History citalopram 40 mg tablet 40 mg PO DAILY 02/23/13 08/14/24 History diphenoxylate-atropine 2.5 1 tab PO BID PRN PRN Diarrhea 02/23/13 Unknown History mg-0.025 mg tablet simvastatin 10 mg tablet 10 mg PO QHS 02/23/13 08/13/24 History aspirin 81 mg tablet,delayed 81 mg PO DAILY@0800 #30 TABLETS 02/25/13 08/14/24 Rx release metoprolol tartrate 25 mg tablet 25 mg PO BID 08/06/14 08/14/24 History bupropion HCl 150 mg tablet,12 hr 150 mg PO BID 09/26/21 08/14/24 History sustained-release (Wellbutrin SR) cholecalciferol (vitamin D3) 50 50 mcg PO DAILY 09/26/21 08/13/24 History mcg (2,000 unit) capsule dicyclomine 10 mg capsule 10 mg PO TID PRN Cramps 09/26/21 Unknown History fish, borage, flaxseed oils-omega 1 cap PO DAILY 09/26/21 08/13/24 History 3,6,9 comb no.1 1,200 mg capsule ([place] 3-6-9) loratadine 10 mg capsule (Claritin 10 mg PO DAILY 09/26/21 08/13/24 History Liqui-Gel) buprenorphine 5 mcg/hour weekly 1 patch transdermal QWEEK 08/14/24 08/10/24 History transdermal patch gabapentin 400 mg capsule See Rx Instructions PO .COMPLEX 08/14/24 08/14/24 History PAIN hydrocodone-acetaminophen 5-325mg 1 ea PO Q6H PRN Back pain 08/14/24 08/14/24 History 5mg-325mg multivitamin with folic acid 400 1 tab PO DAILY SUPPLEMENT 08/14/24 08/13/24 History mcg tablet (Thera) solifenacin 10 mg tablet 10 mg PO DAILY 08/14/24 08/13/24 History tadalafil 5 mg tablet 5 mg PO DAILY 08/14/24 08/13/24 History Allergy/AdvReac Type Severity Reaction Status Date / Time No Known Allergies Allergy Verified 11/18/23 13:45 Family History Father Diabetes CHF (congestive heart failure) Mother Hypertension UTI (urinary tract infection) Surgical History Hx of colonoscopy History of heart artery stent Social History Smoking Status: Current some day smoker tobacco type: cigarettes ROS ROS Narrative General: Denies fever/chills HENT: Denies headache, some allergy-like symptoms EYES: Denies changes in vision Resp: Denies cough, denies shortness of breath Cardiac: Right-sided chest pain that radiates to right arm GI: Denies abdominal pain, denies changes in bowel, denies nausea/vomiting : Denies changes in urination Extremity: Denies swelling MSK: Denies weakness, does have some chronic shoulder pain Neuro: Denies any numbness/tingling Heme: Denies any bleeding or bruising Skin: Denies rashes Psychiatric: No complaints voiced Vital Signs Vital Signs Vital Signs: 08/14/24 10:07 08/14/24 11:31 08/14/24 12:02 Temperature 96.8 F L Temperature Source Temporal Pulse Rate 72 60 63 Respiratory Rate 18 17 18 Blood Pressure 127/68 H 119/57 L 122/64 H Blood Pressure Mean 87 77 83 Pulse Ox 99 92 94 Oxygen Delivery Method Room Air Room Air 08/14/24 13:00 Temperature Temperature Source Pulse Rate 57 L Respiratory Rate 14 Blood Pressure 112/55 L Blood Pressure Mean 74 Pulse Ox 95 Oxygen Delivery Method Weight Weight: 84.005 kg Body Mass Index (BMI) 25.9 Physical Exam Narrative General: Alert, oriented, no apparent distress HEENT: Atraumatic, normocephalic Eyes: Anicteric, normal conjunctiva, extraocular movements grossly intact Neck: Supple Respiratory: Some wheezing at the bases, normal respiratory effort Cardiovascular: Regular rate and rhythm GI: Soft, nontender, nondistended Extremities: No pitting edema Musculoskeletal: Moving all extremities Neuro: No overt focal neurological deficits Skin: No rashes appreciated Psych: Cooperative Results Lab / Micro Data 08/14/24 10:15 08/14/24 10:15 Labs: Laboratory Results - last 24 hr 08/14/24 10:15: WBC 13.8 H, RBC 4.77, Hgb 15.8, Hct 44.0, MCV 92.2, MCH 33.1 H, MCHC 35.9, RDW Std Deviation 42.1, RDW Coeff of Jacy 12.5, Plt Count 203, MPV 10.7, Immature Gran % (Auto) 1.000 H, Neut % (Auto) 65.8, Lymph % (Auto) 24.0, [place] % (Auto) 6.8, Eos % (Auto) 1.7, Baso % (Auto) 0.7, Absolute Neuts (auto) 9.1 H, Absolute Lymphs (auto) 3.30, Nucleated RBC % 0, PT 13.0, INR 1.0, APTT 31.1, D-Dimer Quant (PE/DVT) 0.27, Sodium 141, Potassium 4.2, Chloride 101, Carbon Dioxide 24.7, Anion Gap 16 H, BUN 19, Creatinine 1.02, Estim Creat Clear Calc 70.57, Est GFR (MDRD) Non-Af 80, BUN/Creatinine Ratio 19.0, Glucose 132 H, Calcium 10.2, Total Bilirubin 0.50, Direct Bilirubin 0.17, AST 17, ALT 10, Alkaline Phosphatase 77, Troponin T High Sens 23 H, Total Protein 7.3, Albumin 4.3, Globulin 3.1 08/14/24 12:15: Troponin T Hi Sens 2 Hr 197 H* Imaging Radiology Impression Chest X-Ray 08/14/24 10:34 IMPRESSION: Cardiomegaly. Elevation of the right hemidiaphragm. The lungs are clear. [facility] Assessment & Plan Assessment/Plan (1) Chest pain: (2) CAD (coronary artery disease): (3) Elevated troponin: PLAN: Plan # Chest pain and elevated troponin -Admit to telemetry - Patient reported some right sided chest pain with radiation to the arm since this morning, Toradol and Ativan did improve it however he does again have a little bit of the discomfort at this time though not like it was before - It was initially suspected to be noncardiac in nature however troponin went from 23-197 -Cycle troponin - Given patient's history of coronary artery disease and the increase in troponin patient to be admitted to PCU - He was given aspirin in the ED - Will admit on aspirin with increase statin dosing - Will order echocardiogram -EKG with no overt ischemic appearing changes - Repeat troponin, if it decreases patient has no more symptoms may be able to consider stress test, if it further increases or has additional pain concerns may need cardiology consultation #Depression/anxiety -Continue home medications # Chronic pain - Patient with buprenorphine patch and gets hydrocodone as needed - Given he needs additional as needed medications on top of buprenorphine we will add morphine as needed for his chest pain while awaiting further workup # History of coronary artery disease - Aspirin, statin, continue beta-xander - Management as above #Tobacco use -Advise cessation -Nicotine replacement available if desired #DVT ppx: SCDs Merle Karimi MD Time spent in the patient's overall evaluation,decision-making process, review of diagnostic data, adjustment of management, discussion with other providers, nursing nursing and ancillary staff involved in patient's care documentation, 56 minutes Charges/Coding Visit Charges Inpatient E&M: 05005 Init Hosp L2
--- NOTE | 2024-08-14 15:15 | CASEMGMT ---
Care Management Face to Face with patient for initial transition planning/care coordination assessment in the ED.? This procedure writer introduced self and role at [facility]. Patient alert and oriented. Patient willing to participate in assessment and is able to answer all questions appropriately.? Care providers, pharmacy, and demographics verified. Admitting Diagnosis: ?CAD Other diagnosis history: PCP: ?MVP, Afib, IBS Specialists: ?Héctori, pain management ,? [facility]rology Preferred Pharmacy: We Insurance: ?[employer] Prescription Benefit: yes Living Will/HPOA: none LNOK: ?Suni Mcbride, Sister Living Arrangements: Lives with 88 year old sister in a 2 story home.? Patient reports to being independent with ADLs and IADLs Transportation: ?patient drives DME: ?walker, wheelchair (sisters) HHC: ?None SNF/Rehab: None Community Resources: ?None Behavioral Health History: depression, anxiety, tourettes?? Patient goals: Patient wishes to discharge home.? Patient denies any further needs or concerns at this time. Disposition Plan: admission to acute; RN CM/SW to follow for discharge planning needs that may arise. Fatoumata Levin, MEDICAL DELIVERY DRIVER, INSTALLMENT DEALER
--- NOTE | 2024-08-14 15:33 | EKG12_ITS ---
Test Reason : AM EKG Blood Pressure : */* mmHG Vent. Rate : 61 BPM Atrial Rate : 61 BPM P-R Int : 160 ms QRS Dur : 80 ms QT Int : 444 ms P-R-T Axes : 64 10 76 degrees QTcB Int : 446 ms Normal sinus rhythm Normal ECG When compared with ECG of 14-Aug-2024 17:18, MANUAL COMPARISON REQUIRED DATA IS UNCONFIRMED Confirmed by EUN BARRAGAN, LAN ([id number]), editor city [place] FERNANDES ([id number]) on 08/16/2024 8:55:30 AM Referred By: Confirmed By: LAN HAQ MD
--- NOTE | 2024-08-14 15:33 | ECHOD_ITS ---
Reason For Study : CHEST PAIN Procedure This was a 2D Doppler, Color Flow transthoracic echocardiogram. Exam performed portable in patient room. Left Ventricle Normal LV size. Mild concentric left ventricular hypertrophy. Left ventricular systolic function is normal. The left ventricular ejection fraction is 55 %. No regional wall motion abnormalities noted. Right Ventricle Normal RV size. Normal systolic function. Atria Normal left atrium. Normal right atrium. Mitral Valve Normal mitral valve. Tricuspid Valve Normal tricuspid valve. Aortic Valve Trisinus/trileaflet aortic valve. Mild (1+) eccentric aortic valve insufficiency. Pulmonic Valve Normal pulmonic valve. Great Vessels Normal aortic root. The pulmonary artery is normal size. Inferior vena cava collapse with respiration. Pericardium/Pleural Small (<1.0 cm) pericardial effusion. MMode/2D Measurements & Calculations LVIDd: 5.2 cm IVSd: 1.2 cm Ao root diam: 3.3 cm LVIDs: 3.9 cm LVPWd: 1.3 cm RVDd: 4.3 cm FS: 24.5 % LAV(MOD-bp): 62.9 ml LVAd ap4: 37.9 cm2 SV(MOD-sp4): 69.5 ml LAV(MOD-bp) Indexed: 31.6 ml/m2 LVLd ap4: 8.4 cm SI(MOD-sp4): 34.9 ml/m2 LAV(MOD-sp2): 60.3 ml EDV(MOD-sp4): 137.8 ml LAV(MOD-sp4): 59.2 ml EDV(sp4-el): 145.1 ml LVAs ap4: 24.3 cm2 LVLs ap4: 7.1 cm ESV(MOD-sp4): 68.3 ml ESV(sp4-el): 70.9 ml EF(MOD-sp4): 50.4 % EF(sp4-el): 51.1 % SV(sp4-el): 74.2 ml LA A4 area: 20.8 cm2 LA dimension(2D): 3.6 cm RA A4 area: 17.1 cm2 TAPSE: 1.8 cm Time Measurements MV dec time: 0.33 sec Doppler Measurements & Calculations MV A max vince: 54.4 cm/sec Lat Peak E' Vince: 4.2 cm/sec Med Peak E' Vince: 3.6 cm/sec Ao V2 max: 123.1 cm/sec AI max vince: 482.6 cm/sec LV V1 max: 93.0 cm/sec Ao max P.1 mmHg AI max P.2 mmHg LV V1 max P.5 mmHg AI dec slope: 242.9 cm/sec2 AI P1/2t: 582.0 msec PA V2 max: 95.1 cm/sec TR max vince: 261.8 cm/sec TR max P.4 mmHg ECHO/Echo Complete Interpretation Summary Normal LV size. Left ventricular systolic function is normal. The left ventricular ejection fraction is 55 %. Mild (1+) eccentric aortic valve insufficiency. Small (<1.0 cm) pericardial effusion. Mild concentric left ventricular hypertrophy. Ordering Physician: Merle Karimi Referring Physician: MARIA VICTORIA SOL Performed By: Lizbeth Baugh RDCS
[2024-08-14 17:40] LABS: Troponin T High Sens 4 HR 619 ng/L (<=22)
[2024-08-14] MEDS: 0.9% Saline Lock 10 ML Syringe IV ×2 (18:25→23:39)
[2024-08-14] MEDS: HEPARIN/D5w 25,000 UNITS 25,000 UNITS/250 ML IV.SOLN. 12 UNITS CONT INF (18:25)
[2024-08-14] MEDS: Gabapentin 400 MG Capsule PO (18:38)
[2024-08-14] MEDS: Morphine 2 MG/ML Syringe IV ×2 (20:03→23:38)
[2024-08-14] MEDS: buPROPion (SR) 150 MG Tablet.SA PO (21:55)
[2024-08-14] MEDS: Metoprolol Tartrate 25 MG Tablet PO (21:56)
[2024-08-14] MEDS: busPIRone 15 MG TABLET PO (21:58)
[2024-08-14] MEDS: Atorvastatin Calcium 80 MG Tablet PO (21:58)
[2024-08-14] MEDS: Gabapentin 400 MG Capsule 800 MG PO (22:05)
[2024-08-15] VITALS (15 sets, daily range): BP systolic 100–126; BP diastolic 50–85; PULSE 56–75; RESP 14–18; TEMP 35.8–36.7; O2SAT 89–126; BMI 25.7
[2024-08-15 01:04] LABS: Partial Thromboplast Time 68.3 Seconds (24.1-36.2)
[2024-08-15] MEDS: Morphine 2 MG/ML Syringe IV ×2 (02:56→07:00)
--- NOTE | 2024-08-15 05:55 | EKG12_ITS ---
Test Reason : ADMIT Blood Pressure : */* mmHG Vent. Rate : 62 BPM Atrial Rate : 62 BPM P-R Int : 158 ms QRS Dur : 84 ms QT Int : 426 ms P-R-T Axes : 57 -23 53 degrees QTcB Int : 432 ms Normal sinus rhythm Normal ECG When compared with ECG of 14-Aug-2024 13:29, MANUAL COMPARISON REQUIRED DATA IS UNCONFIRMED Confirmed by EUN BARRAGAN, LAN ([id number]), photographic editor OSWALDO FERNANDES ([id number]) on 08/16/2024 8:57:32 AM Referred By: Confirmed By: LAN HAQ MD
[2024-08-15] MEDS: Gabapentin 400 MG Capsule 800 MG PO ×2 (07:00→23:52)
[2024-08-15 07:50] LABS: Absolute Lymphocyte Count 3.13 X10^3/uL (0.83-4.51); Absolute Neutrophil Count 7.6 X10^3/uL (2.0-7.7); Basophil# 0.11 X10^3/uL; Basophil% 0.9 % (0-1); Eosinophil# 0.29 X10^3/uL; Eosinophils% 2.4 % (0-5); Hematocrit 42.5 % (40-54); Lymphocyte # 3.13 X10^3/ul (0.83-4.51); Lymphocyte % 25.9 % (19-41); Mean Corp Hgb Conc 35.3 g/dL (32-36); Mean Corpuscular Hgb 33.3 pg (27.0-32.0); Mean Corpuscular Volume 94.4 fL (80-94); Mean Platelet Vol. 10.6 fl (6.2-12.0); Monocyte# 0.82 X10^3/uL; Monocyte% 6.8 % (0-10); NRBC Flagged by Analyzer 0 % (0-5); Neutrophil # 7.61 X10^3/uL (2.7-7.7); Neutrophil % 63.1 % (47-70); Platelet Count 173 K/mm3 (150-450); RBC Distribution Width CV 12.4 % (11.6-14.6); RBC Distribution Width SD 43.3 fl (35.1-43.9); White Blood Count 12.1 K/mm3 (4.4-11.0)
--- NOTE | 2024-08-15 08:00 | PCM.CONS.C ---
Assessment & Plan Assessment/Plan (1) Elevated troponin: PLAN: He does have an elevated troponin. I would recommend that we pursue a left heart catheterization and depending on the findings further recommendations will be made. (2) CAD (coronary artery disease): PLAN: He does have coronary artery disease as per his history. We will evaluate the above with a cardiac catheterization and depending on the findings further recommendations will be made. HPI Consult Data Date of Consult: 08/15/24 HPI Narrative HPI Narrative: SHAREE PARISI, is a 69 M who presents to the emergency room with chest discomfort. He describes this as a right-sided chest discomfort which has been going on for a few weeks. He denies any dizziness or diaphoresis near syncope or syncope. He has been compliant with his medications. He presented to the emergency room and had an EKG done which demonstrated sinus rhythm with no acute changes. Troponin enzymes were performed which were noted to be markedly abnormal. Cardiology was called for further recommendation and management. This particular time he is pain-free. [facility] Medical History Left rotator cuff tear Left shoulder pain Loss of hearing Wears glasses Depression Anxiety Tourettes disorder Alcohol use Arthritis Prostate disease Injury of head and neck Blackout Smoker CPAP (continuous positive airway pressure) dependence Back pain History of stress test Cardiology follow-up encounter History of atrial fibrillation MVP (mitral valve prolapse) Hypertension Vitamin D deficiency, unspecified Hyperlipidemia, unspecified Nonrheumatic mitral (valve) prolapse Gastro-esophageal reflux disease without esophagitis Irritable bowel syndrome with diarrhea Benign prostatic hyperplasia without lower urinary tract symptoms Other fecal abnormalities Hematuria, unspecified Personal history of urinary calculi Home Medications ?Medication ?Instructions ?Recorded ?Last Taken ?Type buspirone 15 mg tablet 15 mg PO BID 02/23/13 08/14/24 History citalopram 40 mg tablet 40 mg PO DAILY 02/23/13 08/14/24 History diphenoxylate-atropine 2.5 1 tab PO BID PRN PRN Diarrhea 02/23/13 Unknown History mg-0.025 mg tablet simvastatin 10 mg tablet 10 mg PO QHS 02/23/13 08/13/24 History aspirin 81 mg tablet,delayed 81 mg PO DAILY@0800 #30 TABLETS 02/25/13 08/14/24 Rx release metoprolol tartrate 25 mg tablet 25 mg PO BID 08/06/14 08/14/24 History bupropion HCl 150 mg tablet,12 hr 150 mg PO BID 09/26/21 08/14/24 History sustained-release (Wellbutrin SR) cholecalciferol (vitamin D3) 50 50 mcg PO DAILY 09/26/21 08/13/24 History mcg (2,000 unit) capsule dicyclomine 10 mg capsule 10 mg PO TID PRN Cramps 09/26/21 Unknown History fish, borage, flaxseed oils-omega 1 cap PO DAILY 09/26/21 08/13/24 History 3,6,9 comb no.1 1,200 mg capsule (Sebring 3-6-9) loratadine 10 mg capsule (Claritin 10 mg PO DAILY 09/26/21 08/13/24 History Liqui-Gel) buprenorphine 5 mcg/hour weekly 1 patch transdermal QWEEK 08/14/24 08/10/24 History transdermal patch gabapentin 400 mg capsule See Rx Instructions PO .COMPLEX 08/14/24 08/14/24 History PAIN hydrocodone-acetaminophen 5-325mg 1 ea PO Q6H PRN Back pain 08/14/24 08/14/24 History 5mg-325mg multivitamin with folic acid 400 1 tab PO DAILY SUPPLEMENT 08/14/24 08/13/24 History mcg tablet (Thera) solifenacin 10 mg tablet 10 mg PO DAILY 08/14/24 08/13/24 History tadalafil 5 mg tablet 5 mg PO DAILY 08/14/24 08/13/24 History Allergy/AdvReac Type Severity Reaction Status Date / Time No Known Allergies Allergy Verified 11/18/23 13:45 Family History Father Diabetes CHF (congestive heart failure) Mother Hypertension UTI (urinary tract infection) Surgical History Hx of colonoscopy History of heart artery stent Social History Smoking Status: Current some day smoker tobacco type: cigarettes ROS Constitutional Constitutional: Denies fever(s) or weight loss Eyes Eyes: Reports systems reviewed and no addt'l complaints, except as documented ENT HEENT: Reports systems reviewed and no addt'l complaints, except as documented Cardiovascular Cardiovascular: Reports chest pain at rest; Denies chest pain with activity, dyspnea at rest, dyspnea on exertion, edema, palpitations or paroxysmal nocturnal dyspnea Respiratory/Chest Respiratory/Chest: Denies dyspnea on exertion, productive cough, shortness of breath at rest or shortness of breath with exertion Gastrointestinal Gastrointestinal: Denies change in bowel habits, nausea, vomiting or weight changes Genitourinary Genitourinary: Denies difficulty urinating Musculoskeletal Musculoskeletal: Denies joint stiffness or muscle weakness Integumentary Integumentary: Denies lesions Neurologic Neurologic: Denies dizziness or syncope Psychiatric Psychiatric: Denies anxiety Endocrine Endocrinology: Denies excessive sweating or fatigue Hematologic/Lymphatic Hematologic/Lymphatic: Denies anemia Allergic/Immunologic Allergic/Immunologic: Denies seasonal rhinorrhea Physical Exam Const alert, oriented x3 and no apparent distress General Appearance: cooperative HEENT hearing grossly normal bilaterally Head and Scalp: atraumatic Eyes EOMs intact bilaterally Neck General: normal visual inspection Chest inspection of chest normal and palpation of chest normal Resp normal respiratory effort Auscultation: clear to auscultation bilaterally Cardio regular rate, regular rhythm, S1 normal heart sound and S2 normal heart sound Jugular Venous Distention: JVD GI normal to inspection, nondistended, normoactive bowel sounds Extremity normal capillary refill and no pedal edema Peripheral Pulses: Yes pulses 2+ throughout and femoral pulses present Skin no rashes or lesions noted Neuro oriented x3 and CN's II-XII intact bilaterally Psych Appearance: grossly normal and appropriate Risk Stratification Risk Stratification Applicable: Yes Age >/= 65: Yes >/= 3 CAD Risk Factors (HTN, HLD, DM, family hx of CAD, or current smoker): Yes Aspirin Use in the Past 7 Days: No Severe Angina (>/= episodes in 24 hours): No EKG ST Changes >/= 0.5mm: No Positive Cardiac Marker: Yes ZIGYG Risk Stratification Score: 3 ZIGGY % Risk: 13% Risk Objective Data Vital Signs: Vital Signs Temp Pulse Resp BP Pulse Ox O2 Del Method 98.0 F 63 14 108/53 L 93 Room Air 08/15/24 02:00 08/15/24 02:00 08/15/24 02:00 08/15/24 02:00 08/15/24 02:00 08/15/24 02:25 Oxygen Delivery Method Room Air Weight: 179 lb 10.828 oz Body Mass Index (BMI) 25.7 Intake & Output: Intake and Output for Last 24 Hours 08/13/24 08/14/24 08/15/24 23:59 23:59 23:59 Intake Total 240 / 240 83 / 83 Output Total 600 / 600 300 / 300 Balance -360 / -360 -217 / -217 Lab / Micro Data 08/15/24 07:12 08/15/24 07:12 Labs: Laboratory Results - last 24 hr 08/14/24 10:15: WBC 13.8 H, RBC 4.77, Hgb 15.8, Hct 44.0, MCV 92.2, MCH 33.1 H, MCHC 35.9, RDW Std Deviation 42.1, RDW Coeff of Jacy 12.5, Plt Count 203, MPV 10.7, Immature Gran % (Auto) 1.000 H, Neut % (Auto) 65.8, Lymph % (Auto) 24.0, Dewitt % (Auto) 6.8, Eos % (Auto) 1.7, Baso % (Auto) 0.7, Absolute Neuts (auto) 9.1 H, Absolute Lymphs (auto) 3.30, Nucleated RBC % 0, PT 13.0, INR 1.0, APTT 31.1, D-Dimer Quant (PE/DVT) 0.27, Sodium 141, Potassium 4.2, Chloride 101, Carbon Dioxide 24.7, Anion Gap 16 H, BUN 19, Creatinine 1.02, Estim Creat Clear Calc 70.57, Est GFR (MDRD) Non-Af 80, BUN/Creatinine Ratio 19.0, Glucose 132 H, Calcium 10.2, Total Bilirubin 0.50, Direct Bilirubin 0.17, AST 17, ALT 10, Alkaline Phosphatase 77, Troponin T High Sens 23 H, Total Protein 7.3, Albumin 4.3, Globulin 3.1 08/14/24 12:15: Troponin T Hi Sens 2 Hr 197 H* 08/14/24 16:00: Troponin T Hi Sens 4Hr 619 H* 08/15/24 00:35: APTT 68.3 H 08/15/24 07:12: WBC 12.1 H, RBC 4.50 L, Hgb 15.0, Hct 42.5, MCV 94.4 H, MCH 33.3 H, MCHC 35.3, RDW Std Deviation 43.3, RDW Coeff of Jacy 12.4, Plt Count 173, MPV 10.6, Immature Gran % (Auto) 0.900, Neut % (Auto) 63.1, Lymph % (Auto) 25.9, Dewitt % (Auto) 6.8, Eos % (Auto) 2.4, Baso % (Auto) 0.9, Absolute Neuts (auto) 7.6, Absolute Lymphs (auto) 3.13, Nucleated RBC % 0 Cardiology Labs/Tests 08/14/24 10:15: WBC 13.8 H, RBC 4.77, Hgb 15.8, Hct 44.0, MCV 92.2, MCH 33.1 H, MCHC 35.9, Plt Count 203, MPV 10.7, Immature Gran % (Auto) 1.000 H, Neut % (Auto) 65.8, Lymph % (Auto) 24.0, Dewitt % (Auto) 6.8, Eos % (Auto) 1.7, Baso % (Auto) 0.7, Absolute Neuts (auto) 9.1 H, Nucleated RBC % 0, PT 13.0, INR 1.0, APTT 31.1, D-Dimer Quant (PE/DVT) 0.27, Sodium 141, Potassium 4.2, Chloride 101, Carbon Dioxide 24.7, Anion Gap 16 H, BUN 19, Creatinine 1.02, Est GFR (MDRD) Non-Af 80, BUN/Creatinine Ratio 19.0, Glucose 132 H, Calcium 10.2, Total Bilirubin 0.50, Direct Bilirubin 0.17 08/15/24 00:35: APTT 68.3 H 08/15/24 07:12: WBC 12.1 H, RBC 4.50 L, Hgb 15.0, Hct 42.5, MCV 94.4 H, MCH 33.3 H, MCHC 35.3, Plt Count 173, MPV 10.6, Immature Gran % (Auto) 0.900, Neut % (Auto) 63.1, Lymph % (Auto) 25.9, Dewitt % (Auto) 6.8, Eos % (Auto) 2.4, Baso % (Auto) 0.9, Absolute Neuts (auto) 7.6, Nucleated RBC % 0 Rhythm: EKG: ECHO: Stress Test: Cardiac Cath: PCI: CT Surgery: Holter monitor: EPS: PPM: CXR: Chest CT Scan: Radiography Diagnostic Testing: Radiology Impression Chest X-Ray 08/14/24 10:34 IMPRESSION: Cardiomegaly. Elevation of the right hemidiaphragm. The lungs are clear. Reading Location: [place] [address]
[2024-08-15 08:14] LABS: Prothrombin Time (Protime)PT. 13.3 SECONDS (11.7-14.9)
[2024-08-15 08:25] LABS: Anion Gap 12 (5-15); BUN 21 mg/dL (4-19); BUN/Creat Ratio 23.8 RATIO (10-20); Calcium,Total 9.2 mg/dL (7.6-11.0); Carbon Dioxide 21.3 mmol/L (21.0-32.0); Chloride 105 mmol/L (98-108); Cholesterol 139 mg/dL (<=200); Creatinine, Serum 0.87 mg/dL (0.70-1.20); EST Glomerular Filtration Rate 94 (>60); Estimated Creatinine Clearance 82.74 ml/min (50-250); Glucose 98 mg/dL (70-99); High Density Lipoprotein 41 mg/dL; Low Density Lipoprotein Calc. 70 mg/dL; Magnesium 2.1 mg/dL (1.5-2.2); Potassium 4.1 mmol/L (3.3-5.1); Sodium Level 138 mmol/L (133-145); Triglycerides 139 mg/dL; Very Low Density Lipoprotein 28 mg/dL (5-40); cholesterol:hdl ratio screen 3.39
[2024-08-15] MEDS: Aspirin E.C. 81 MG Tablet PO (09:09)
[2024-08-15] MEDS: 0.9% Saline Lock 10 ML Syringe IV ×2 (09:10→23:51)
--- NOTE | 2024-08-15 10:34 | CL.D_ITS ---
Patient Name: SHAREE PARISI Study Date: 08/15/2024 Performing: Pepito Tse MD Ht: 70 inches 177.8 cm : 1955 Wt: 179.9 lbs 81.5 kg Age: 69 Gender: male BSA: 1.99 PROCEDURE(S) PERFORMED DC02-(78195)LHC/COR IC12-([id number])RICHIE W/WO PTCA, SINGLE CORONARY ARTERY CLINICAL PROFILE AND INDICATIONS Indications: Worsening Angina Heart Failure: None Stress/Imaging Stress/Image Study Performed: No CAD Presentations: Stable angina. CONCLUSIONS Severe coronary disease involving the proximal and mid left anterior descending artery and proximal first obtuse marginal branch. Mild disease involving the proximal right coronary artery. Preserved ejection fraction. RECOMMENDATIONS Referred for immediate PCI DESCRIPTION OF PROCEDURE The patient arrived to the procedure lab. The risks and benefits of the procedure as well as a full description of our services here and current unavailability of surgical backup were fully explained to the patient and/or their significant other prior to the catheterization. The Timeout was completed, verifying the correct patient and procedure. The patient's procedural site was prepped and draped in the usual fashion. Local anesthetic was given subcutaneously to right radial region with Lidocaine 2%. Using a modified Seldinger technique, arterial access was obtained via the right radial artery, a 6Fr sheath was inserted. Left Coronary Artery selective angiography was performed in multiple views using a 5 Fr. 4.0 [place] catheter. Right Coronary Artery selective angiography was then performed in multiple views using a 5 Fr. JR 5 catheter.The arterial sheath was pulled and a TR Band was applied for hemostasis. 12cc of air CORONARY ANGIOGRAPHY DOMINANCE: Right Dominant LEFT HEART ASSESSMENT Left Ventricular Ejection Fraction: by Echo 60 % Normal Left Ventricular systolic function LEFT MAIN: Angiographically normal LEFT ANTERIOR DESCENDING ARTERY: Previously stented vessel with long 70 to 80% stenosis prior to the stent, in-stent stenosis of 70% and post distal stent of 80%. The rest of the vessel appears to be mildly diseased. CIRCUMFLEX ARTERY: Mild luminal irregularities less than 30% OM 1: Proximal - 70 % Stenosis RIGHT CORONARY ARTERY: PROX RCA: Eccentric 30 to 40% stenosis and mild diffuse disease. VALVE FINDINGS: Aortic Valve Insufficiency: Grade 1 AORTIC ROOT: Dilated COMPLICATIONS No Complications PROCEDURE MEDICATIONS Versed 1 mg IV Versed 1 mg IV Versed 1 mg IV Versed 1 mg IV Versed 1 mg IV Oxygen: 2 L/min via nasal cannula Oxygen: 3 L/min via nasal cannula Brilinta 180 mg PO @ 08/15/2024 10:28:30 Heparin given IA 08/15/2024 09:57:55 Heparin 6000 unit(s) IV 08/15/2024 10:31:59 Nitro 200 mcg IC 08/15/2024 10:57:56 Verapamil 2.5mg, Ntg 100mcgs, 3000 units of Heparin given IA 08/15/2024 09:57:55 SUMMARY OF HEMODYNAMIC DATA Time AIR REST ECG 09:44:13 AO 128/65 (87) SA 10:09:06 AIR REST 11:21:34 Signed By Pepito Tse MD On 08/15/2024 14:04:33 Pepito Tse MD
--- NOTE | 2024-08-15 11:26 | CL.I_ITS ---
Patient Name: SHAREE PARISI Study Date: 08/15/2024 Performing: Daniel Blackmon MD Ht: 70 inches 177.8 cm : 1955 Wt: 179.9 lbs 81.5 kg Age: 69 Gender: male BSA: 1.99 PROCEDURE(S) PERFORMED IC12-(31304/C9600)RICHIE W/WO PTCA, SINGLE CORONARY ARTERY CLINICAL PROFILE AND CO-MORBIDITIES Indications: Worsening Angina Heart Failure: None Stress/Imaging Stress/Image Study Performed: No CAD Presentations: Stable angina. CONCLUSIONS optimized proximally using 4.5 mm balloon RECOMMENDATIONS ASA Indefinitley P2Y12 inhibitors for atleast 6 months DESCRIPTION OF PROCEDURE The patient arrived to the procedure lab. The risks and benefits of the procedure as well as a full description of our services here and current unavailability of surgical backup were fully explained to the patient and/or their significant other prior to the catheterization. The Timeout was completed, verifying the correct patient and procedure. The patient's procedural site was prepped and draped in the usual fashion. Local anesthetic was given subcutaneously to right radial region with Lidocaine 2% Using a modified Seldinger technique,arterial access was obtained via the right radial artery, a 6Fr sheath was inserted. Left Coronary Artery selective angiography was performed in multiple views using a 5 Fr. 4.0 [place] catheter. Right Coronary Artery selective angiography was then performed in multiple views using a 5 Fr. JR 5 catheter.The images were reviewed and options discussed. A decision was then made to proceed with an Intervention, IVUS or other adjunct procedure. XB 3 Guide catheter was inserted and engaged into the LCA. Runthrough Guide wire was advanced to the LAD. 3x38 Russell Drug Eluting stent was inserted. Drug Eluting stent was advanced across the lesion in the LAD, mid. Angiogram performed post stent deployment. 3x22 Russell Drug Eluting stent was inserted. Drug Eluting stent was advanced across the lesion in the LAD, mid. 3x20 NC Emerge Balloon catheter was inserted. Balloon catheter was inserted post stent. Angiogram performed post stent deployment. 4x6 NC Euphora Balloon catheter was inserted. Balloon catheter was inserted post stent. Angiogram performed post balloon dilatation. 4.5x8 NC euphora Balloon catheter was inserted. Balloon catheter was inserted post stent. Angiogram performed post balloon dilatation. The arterial sheath was pulled and a TR Band was applied for hemostasis. 12cc of air INTERVENTION INFORMATION LESION SITE: LAD (Mid) Lesion Complexity: High/C, culprit lesion: Yes, lesion length: 58 mm, In-stent restenosis: Yes Pre Stenosis: 90 % Pre intervention ZIGGY flow: 3 PROCEDURE: Drug Eluting Stent with post dilatation Post Stenosis: 0 % Post intervention ZIGGY flow: 3 Lesion Devices: Terumo .014 180cm Runthrough Extra Floppy straight Cordis 6 Fr XB3.0 100cm Guide Catheter Medtronic 3.0 x 38 TANJA FRONTIER RICHIE Medtronic 3.0 x 22 TANJA FRONTIER RCIHIE Meliton Sci NC EMERGE MR 3.00x20 BALLOON Medtronic NC EUPHORA RX 4.0x06 BALLOON Medtronic NC EUPHORA RX 4.5x08 BALLOON COMPLICATIONS No Complications PROCEDURE MEDICATIONS Versed 1 mg IV Versed 1 mg IV Versed 1 mg IV Versed 1 mg IV Versed 1 mg IV Oxygen: 2 L/min via nasal cannula Oxygen: 3 L/min via nasal cannula Brilinta 180 mg PO @ 08/15/2024 10:28:30 Heparin given IA 08/15/2024 09:57:55 Heparin 6000 unit(s) IV 08/15/2024 10:31:59 Nitro 200 mcg IC 08/15/2024 10:57:56 Verapamil 2.5mg, Ntg 100mcgs, 3000 units of Heparin given IA 08/15/2024 09:57:55 SUMMARY OF HEMODYNAMIC DATA Time AIR REST ECG 09:44:13 AO 128/65 (87) SA 10:09:06 AIR REST 11:21:34 Signed By Daniel Blackmon MD On 08/15/2024 14:02:56 Signed By Daniel Blackmon MD On 08/15/2024 11:26:01 Daniel Blackmon MD
--- NOTE | 2024-08-15 11:30 | EKG12_ITS ---
Test Reason : PCI Blood Pressure : */* mmHG Vent. Rate : 62 BPM Atrial Rate : 62 BPM P-R Int : 164 ms QRS Dur : 82 ms QT Int : 458 ms P-R-T Axes : 61 -16 86 degrees QTcB Int : 464 ms Normal sinus rhythm with sinus arrhythmia Normal ECG When compared with ECG of 15-Aug-2024 05:45, MANUAL COMPARISON REQUIRED DATA IS UNCONFIRMED Confirmed by EUN BARRAGAN, LAN ([id number]), science editor OSWALDO FERNANDES ([id number]) on 08/16/2024 8:59:34 AM Referred By: EUN Confirmed By: LAN HAQ MD
[2024-08-15] MEDS: busPIRone 15 MG TABLET PO ×2 (13:16→20:54)
[2024-08-15] MEDS: buPROPion (SR) 150 MG Tablet.SA PO ×2 (13:16→20:55)
[2024-08-15] MEDS: Citalopram 40 MG TABLET PO (13:16)
--- NOTE | 2024-08-15 14:49 | CASEMGMT ---
Met with patient to complete RUST form. RUST form explained to patient who voiced understanding and signed form. Original form placed in pt?s chart and copy provided to patient. Almita Mccormick, Discharge Planning Asst
--- NOTE | 2024-08-15 14:50 | CRPHASE1_ITS ---
Patient Communication Patient Information Former Patient:: Phase I and Phase II PHII Cardiac Rehab Discussed with Patient:: Yes Guide to Cardiac Rehab Given to Patient:: Yes Cardiac Rehab Facility Choice List Given to Patient:: Yes Communication to Cardiac Rehab Choice Program [facility] CR PHII:: Communication Given to CR Software Support Technician:: Daniel Blackmon Sessions:: 36 sessions - 3 days/wk, 12 weeks Cardiac Rehabilitation Info Program Information Cardiac Rehabilitation Program Information: Cardiac Rehab The cardiac rehab team at [facility] consists of highly skilled exercise physiologists, nurses, respiratory therapists and physicians working together with you. Our purpose is to help you have a full recovery and achieve the goals you set for yourself. Over the years many of our patients have returned to activities they assumed they would never do again! We can help restore your confidence and motivation to make lifestyle changes that can have a significant impact on your health and quality of life! We can help answer questions and concerns you may have about exercise, lifestyle, medications, diet, stress and anxiety which are common following a hospitalization. WE monitor ECG and vital signs during exercise and discuss your progress with you and report to your physician(s). Cardiac Rehab is proven to help reduce readmissions, improve functional capacity and lower recurrence of problems with your heart. Our Cardiac Rehab program is Certified by the [place] [employer]monary [employer] (AACVPR) and Accredited by the [employer] through our [facility]. You can contact us at . We invite you to call us with your questions or to get started in our program. If you have other questions or concerns be sure to ask your physician/provider during your follow-up visit. WE look forward to seeing you!
--- NOTE | 2024-08-15 14:50 | CRPH1.INSTRU ---
General Education Discussed with Patient CAD and cardiac anatomy and function:: Patient communicates acknowledgment Explanation of diagnoses and procedures:: Patient communicates acknowledgment Sign/Symptoms of KS:: Patient communicates acknowledgment Antiplatelet therapy: Patient communicates acknowledgment Proper use of NTG-SL: Patient communicates acknowledgment Emergency procedures and activation of EMS: Patient communicates acknowledgment Compliance of all prescribed medications: Patient communicates acknowledgment Smoking Risk Factors Patient Nicotine/Smoking Risk Factors Are:: Second-hand smoke Recommendations Recommendations Include:: Second-hand smoke recommendation Response Code Nicotine/Smoking Response Code:: Patient communicates acknowledgment Dyslipidemia Recommendations Recommendations Include:: Lipid profile not available Response Code Dyslipidemia Response Code:: Patient communicates acknowledgment Overweight/Obesity Risk Factors Patient Overweight/Obesity Risk Factors Are:: BMI Normal [24-29 & > 65 years old] Response Code Overweight/Obesity:: Patient communicates acknowledgment Hypertension Risk Factors Patient Hypertension Risk Factors Are:: No documented hx of HTN Response Code Hypertension:: Patient communicates acknowledgment Heart Disease Risk Factors Patient Heart Disease Risk Factors Are:: Family history of heart disease < 65 years old Recommendations Recommendations Include:: Educated family members of their risk and Educated family members of importance of prevention of heart disease Response Code Heart Disease Response Code:: Patient communicates acknowledgment Diabetes Risk Factors Patient Diabetes Risk Factors Are:: No documented hx of diabetes Response Code Diabetes:: Patient communicates acknowledgment Metabolic Syndrome Recommendations Recommendations Include:: Does not meet criteria Sedentary Recommendations Recommendations Include:: Benefits of regular exercise Response Code Sedentary Response Code:: Patient communicates acknowledgment Stress Recommendations Recommendations Include:: Identification of stressors, and assessment of coping skills and Stress management techniques Response Code Stress Response Code:: Patient communicates acknowledgment
[2024-08-15] MEDS: oxyCODONE 5 MG Tablet PO ×2 (15:07→20:51)
[2024-08-15] MEDS: Acetaminophen 325 MG Tablet 650 MG PO (15:07)
[2024-08-15] MEDS: Loratadine 10 MG Tablet PO (15:08)
[2024-08-15] MEDS: Tolterodine Tartrate 4 MG CAP.SA PO (15:08)
[2024-08-15] MEDS: Metoprolol Tartrate 25 MG Tablet PO ×2 (15:09→20:55)
[2024-08-15] MEDS: Lisinopril 2.5 MG Tablet PO (15:22)
[2024-08-15] MEDS: 0.9% Normal Saline (1000mL) 1,000 ML 150 ML IV (15:22)
[2024-08-15 15:57] LABS: ACT Activated Clotting Time 302 sec (74-137)
[2024-08-15 15:57] LABS: ACT Activated Clotting Time 256 sec (74-137)
--- NOTE | 2024-08-15 17:48 | PN.HOSP_ITS ---
Reason for Visit Reason for Visit: Chest pain Subjective Subjective Patient went for cardiac catheterization today and had 2 stents placed. States this evening he is feeling better. Asks when he can go home as he does take care of his elderly sister at home. We did discuss that he will likely be able to go home tomorrow as long as he remains stable clinically. Objective Data Objective Data Vital Signs: Vital Signs Temp Pulse Resp BP Pulse Ox O2 Del Method O2 Flow Rate 96.9 F L 68 17 126/60 H 126 Room Air 2 08/15/24 14:50 08/15/24 15:09 08/15/24 14:50 08/15/24 14:50 08/15/24 14:50 08/15/24 14:50 08/15/24 12:05 Oxygen Flow Rate (L/min) 2 Oxygen Delivery Method Room Air Weight: 81.5 kg Body Mass Index (BMI) 25.7 Intake & Output: Intake and Output for Last 24 Hours 08/13/24 08/14/24 08/15/24 23:59 23:59 23:59 Intake Total 240 / 240 177 / 177 Output Total 600 / 600 480 / 480 Balance -360 / -360 -303 / -303 Lab / Micro Data 08/15/24 07:12 08/15/24 07:12 Labs: Laboratory Results - last 24 hr 08/15/24 00:35: APTT 68.3 H 08/15/24 07:12: WBC 12.1 H, RBC 4.50 L, Hgb 15.0, Hct 42.5, MCV 94.4 H, MCH 33.3 H, MCHC 35.3, RDW Std Deviation 43.3, RDW Coeff of Jacy 12.4, Plt Count 173, MPV 10.6, Immature Gran % (Auto) 0.900, Neut % (Auto) 63.1, Lymph % (Auto) 25.9, [place] % (Auto) 6.8, Eos % (Auto) 2.4, Baso % (Auto) 0.9, Absolute Neuts (auto) 7.6, Absolute Lymphs (auto) 3.13, Nucleated RBC % 0, PT 13.3, INR 1.0, APTT 43.0 H, Sodium 138, Potassium 4.1, Chloride 105, Carbon Dioxide 21.3, Anion Gap 12, B UN 21 H, Creatinine 0.87, Estim Creat Clear Calc 82.74, Est GFR (MDRD) Non-Af 94, BUN/Creatinine Ratio 23.8 H, Glucose 98, Calcium 9.2, Magnesium 2.1, Triglycerides 139, Cholesterol 139, LDL Cholesterol, Calc 70, VLDL Cholesterol 28, HDL Cholesterol 41, Cholesterol/HDL Ratio 3.39, TSH 1.480 08/15/24 10:43: Activated Clotting Time 302 H 08/15/24 11:14: Activated Clotting Time 256 H Radiography Diagnostic Testing: Radiology Impression Echocardiogram 08/14/24 15:33 Interpretation Summary Normal LV size. Left ventricular systolic function is normal. The left ventricular ejection fraction is 55 %. Mild (1+) eccentric aortic valve insufficiency. Small (<1.0 cm) pericardial effusion. Mild concentric left ventricular hypertrophy. Ordering Physician: Merle Karimi Referring Physician: MARIA VICTORIA SOL Performed By: Lizbeth Baugh RDCS Physical Exam Const alert, oriented x3 and no apparent distress Constitutional Narrative: Upper middle-aged, white male, sitting up on the edge of the bed, eating dinner, appears comfortable, nontoxic HEENT head/scalp atraumatic and moist oral mucous membranes Head and Scalp: normocephalic Resp normal respiratory effort, no retractions, no use of accessory muscles and No clear to auscultation bilaterally Resp Narrative: Expiratory fine wheezes at the bases bilaterally Auscultation: wheezes; Negative for rales or rhonchi Cardio regular rate, regular rhythm, S1 normal heart sound, S2 normal heart sound, no murmurs, no rub, no gallops and no clicks GI normal to inspection, nondistended, normoactive bowel sounds, soft to palpation and non-tender Extremity no clubbing, cyanosis or edema Extremity Narrative: Pedal and radial pulses are 2+ bilaterally, right wrist with postoperative dressing in place clean dry and intact with no significant tenderness in the surrounding area Neuro oriented x3, moves all extremities and no focal motor deficits Speech: speech normal Psych affect normal Psych Narrative: Very pleasant, interacts appropriately Assessment & Plan Assessment/Plan (1) Elevated troponin: (2) Chest pain: (3) Leukocytosis: PLAN: Plan Chest pain with elevated troponin secondary to proximal-mid LAD stenosis - PCI with RICHIE to LAD - Continue aspirin indefinitely - Continue Brilinta for at least 6 months per recommendations - Continue simvastatin but increase to 20 mg from 10 mg at discharge - Lipid profile was performed and showed an LDL of 70 - Continue home metoprolol - Cardiology following-appreciate input - Monitor on telemetry overnight and anticipate discharge tomorrow as long as he remains medically stable - Echocardiogram was done and showed EF of 55% with no regional wall motion abnormalities, mild eccentric aortic valve insufficiency, small pericardial effusion and mild concentric LVH Leukocytosis - Trending down -highly suspect this is reactive CAD/essential hypertension/hyperlipidemia -Patient with previous stent - Continue home metoprolol - Continue home statin but will likely increase dose to 20 mg at discharge as LDL is right at 70 Chronic pain - Continue home regimen Depression/anxiety - Continue home citalopram, Wellbutrin, and BuSpar History of tobacco abuse - Patient with ongoing tobacco use - Recommend cessation - Nicotine patch is available History of alcohol abuse -patient has been sober for several years - Denies any ongoing use - Recommend cessation DVT prophylaxis -SCDs for now if patient requires another night of hospitalization will transition to subcu heparin CODE STATUS Full code as verified at the time of admission Charges/Coding Visit Charges Inpatient E&M: 74110 Subs Hosp L2
[2024-08-15] MEDS: Gabapentin 400 MG Capsule PO ×2 (18:34→20:53)
[2024-08-15] MEDS: Clopidogrel Bisulfate 300 MG Tablet PO (18:34)
[2024-08-15] MEDS: Atorvastatin Calcium 80 MG Tablet PO (20:55)
[2024-08-16 02:49] VITALS: BP 100/56; PULSE 62; RESP 15; TEMP 36.5; O2SAT 94
[2024-08-16 03:00] VITALS: PULSE 61
[2024-08-16 03:52] VITALS: BMI 25.7
[2024-08-16 06:17] LABS: Hematocrit 41.6 % (40-54); Hemoglobin 14.3 g/dL (13.0-16.5); Mean Corp Hgb Conc 34.4 g/dL (32-36); Mean Corpuscular Hgb 33.3 pg (27.0-32.0); Mean Platelet Vol. 10.5 fl (6.2-12.0); Platelet Count 159 K/mm3 (150-450); RBC Distribution Width CV 12.4 % (11.6-14.6); Red Blood Count 4.29 M/mm3 (4.6-6.2); White Blood Count 12.3 K/mm3 (4.4-11.0)
[2024-08-16] MEDS: Gabapentin 400 MG Capsule 800 MG PO (06:41)
[2024-08-16 06:45] LABS: ALB/GLOB Ratio 1.4 RATIO (0.9-2.4); AST(SGOT) 25 U/L (<=37); Alanine Aminotransfer ALT/SGPT 10 U/L (<=46); Albumin, Serum 3.7 g/dL (3.4-4.8); Alkaline Phosphatase 62 U/L (40-129); Anion Gap 10 (5-15); BUN 16 mg/dL (4-19); BUN/Creat Ratio 20.6 RATIO (10-20); Calcium,Total 8.8 mg/dL (7.6-11.0); Carbon Dioxide 23.3 mmol/L (21.0-32.0); Chloride 106 mmol/L (98-108); Creatinine, Serum 0.77 mg/dL (0.70-1.20); EST Glomerular Filtration Rate 97 (>60); Estimated Creatinine Clearance 89.98 ml/min (50-250); Globulin 2.7 g/dL (2.2-4.2); Glucose 84 mg/dL (70-99); Magnesium 2.1 mg/dL (1.5-2.2); Protein, Total 6.4 g/dL (5.9-8.4); Sodium Level 139 mmol/L (133-145); Total Bilirubin 0.72 mg/dL (0.00-1.30)
[2024-08-16 06:47] LABS: Phosphorus 3.1 mg/dL (2.7-4.5)
--- NOTE | 2024-08-16 08:17 | PN.CARD_ITS ---
Subjective Subjective Patient seen and evaluated. Doing well this morning no complaints. Objective Data Vital Signs: Vital Signs Temp Pulse Resp BP Pulse Ox O2 Del Method O2 Flow Rate 97.7 F L 61 15 100/56 L 94 Room Air 2 08/16/24 02:49 08/16/24 03:00 08/16/24 02:49 08/16/24 02:49 08/16/24 02:49 08/16/24 02:49 08/15/24 12:05 Oxygen Flow Rate (L/min) 2 Oxygen Delivery Method Room Air Weight: 179 lb 7.3 oz Body Mass Index (BMI) 25.7 Intake & Output: Intake and Output for Last 24 Hours 08/14/24 08/15/24 08/16/24 23:59 23:59 23:59 Intake Total 240 / 240 1537 / 1537 Output Total 600 / 600 1140 / 1140 650 / 650 Balance -360 / -360 397 / 397 -650 / -650 Lab / Micro Data 08/16/24 05:35 08/16/24 05:35 Labs: Laboratory Results - last 24 hr 08/15/24 07:12: Sodium 138, Potassium 4.1, Chloride 105, Carbon Dioxide 21.3, Anion Gap 12, BUN 21 H, Creatinine 0.87, Estim Creat Clear Calc 82.74, Est GFR (MDRD) Non-Af 94, BUN/Creatinine Ratio 23.8 H, Glucose 98, Calcium 9.2, Magnesium 2.1, Triglycerides 139, Cholesterol 139, LDL Cholesterol, Calc 70, VLDL Cholesterol 28, HDL Cholesterol 41, Cholesterol/HDL Ratio 3.39, TSH 1.480 08/15/24 10:43: Activated Clotting Time 302 H 08/15/24 11:14: Activated Clotting Time 256 H 08/16/24 05:35: WBC 12.3 H, RBC 4.29 L, Hgb 14.3, Hct 41.6, MCV 97.0 H, MCH 33.3 H, MCHC 34.4, RDW Std Deviation 44.0 H, RDW Coeff of Jacy 12.4, Plt Count 159, MPV 10.5, Sodium 139, Potassium 4.0, Chloride 106, Carbon Dioxide 23.3, Anion Gap 10, BUN 16, Creatinine 0.77, Estim Creat Clear Calc 89.98, Est GFR (MDRD) Non-Af 97, BUN/Creatinine Ratio 20.6 H, Glucose 84, Calcium 8.8, Phosphorus 3.1, Magnesium 2.1, Total Bilirubin 0.72, AST 25, ALT 10, Alkaline Phosphatase 62, Total Protein 6.4, Albumin 3.7, Globulin 2.7, Albumin/Globulin Ratio 1.4 Cardiology Labs/Tests 08/15/24 07:12: Sodium 138, Potassium 4.1, Chloride 105, Carbon Dioxide 21.3, Anion Gap 12, BUN 21 H, Creatinine 0.87, Est GFR (MDRD) Non-Af 94, B UN/Creatinine Ratio 23.8 H, Glucose 98, Calcium 9.2, Magnesium 2.1, Triglycerides 139, Cholesterol 139, VLDL Cholesterol 28, HDL Cholesterol 41, Cholesterol/HDL Ratio 3.39 08/16/24 05:35: WBC 12.3 H, RBC 4.29 L, Hgb 14.3, Hct 41.6, MCV 97.0 H, MCH 33.3 H, MCHC 34.4, Plt Count 159, MPV 10.5, Sodium 139, Potassium 4.0, Chloride 106, Carbon Dioxide 23.3, Anion Gap 10, BUN 16, Creatinine 0.77, Est GFR (MDRD) Non- Af 97, BUN/Creatinine Ratio 20.6 H, Glucose 84, Calcium 8.8, Phosphorus 3.1, Magnesium 2.1, Total Bilirubin 0.72 Rhythm: EKG: ECHO: Stress Test: Cardiac Cath: PCI: CT Surgery: Holter monitor: EPS: PPM: CXR: Chest CT Scan: Radiography Diagnostic Testing: Radiology Impression Echocardiogram 08/14/24 15:33 Interpretation Summary Normal LV size. Left ventricular systolic function is normal. The left ventricular ejection fraction is 55 %. Mild (1+) eccentric aortic valve insufficiency. Small (<1.0 cm) pericardial effusion. Mild concentric left ventricular hypertrophy. Ordering Physician: Merle Karimi Referring Physician: MARIA VICTORIA SOL Performed By: [place], Lizbeth, RDCS Physical Exam Const alert, oriented x3 and no apparent distress General Appearance: cooperative HEENT hearing grossly normal bilaterally Head and Scalp: atraumatic Eyes EOMs intact bilaterally Neck General: normal visual inspection Chest inspection of chest normal and palpation of chest normal Resp normal respiratory effort Auscultation: clear to auscultation bilaterally Cardio regular rate, regular rhythm, S1 normal heart sound and S2 normal heart sound Jugular Venous Distention: JVD GI normal to inspection, nondistended, normoactive bowel sounds Extremity normal capillary refill and no pedal edema Peripheral Pulses: Yes pulses 2+ throughout and femoral pulses present Skin no rashes or lesions noted Neuro oriented x3 and CN's II-XII intact bilaterally Psych Appearance: grossly normal and appropriate Assessment & Plan Assessment/Plan (1) Elevated troponin: PLAN: He presented with an elevated troponin and was noted to have coronary artery disease for which he underwent angioplasty and stenting. (2) CAD (coronary artery disease): PLAN: He does have coronary artery disease as per his history. Cardiac catheterization demonstrated high-grade stenosis before and after the stent. He underwent successful angioplasty and stenting. He will be discharged on guideline directed medical therapy and to have cardiac rehabilitation and office follow-up in 2 to 4 weeks.
[2024-08-16 08:27] VITALS: PULSE 67
[2024-08-16] MEDS: busPIRone 15 MG TABLET PO (08:27)
[2024-08-16] MEDS: Aspirin E.C. 81 MG Tablet PO (08:27)
[2024-08-16] MEDS: buPROPion (SR) 150 MG Tablet.SA PO (08:27)
[2024-08-16] MEDS: Metoprolol Tartrate 25 MG Tablet PO (08:27)
[2024-08-16] MEDS: Citalopram 40 MG TABLET PO (08:28)
[2024-08-16] MEDS: Loratadine 10 MG Tablet PO (08:28)
[2024-08-16] MEDS: Tolterodine Tartrate 4 MG CAP.SA PO (08:28)
[2024-08-16] MEDS: Clopidogrel Bisulfate 75 MG Tablet PO (08:28)
[2024-08-16] MEDS: Lisinopril 2.5 MG Tablet PO (08:29)
[2024-08-16 08:33] VITALS: BP 113/63; PULSE 67; RESP 17; TEMP 36.6; O2SAT 94
--- NOTE | 2024-08-16 09:03 | PCM.DC.SUM ---
Providers Date of Admission: 08/14/24 Date of Discharge: 08/16/24 Primary Care Physician: Dr. Maria Victoria Escobar, Consultations 08/14/24 17:44 Consult: Cardiology Routine Consulting Provider: Pepito Tse Reason for Consult: chest pain on presentation, increasing troponin EMERGENT Consult: No MD Notified: Yes Date Notified: 08/14/24 Time Notified: 17:45 Method of Notification: Text Reason For Visit: CHEST PAIN, ELEVATED TROPONIN Diagnosis Discharge Diagnosis (1) Elevated troponin: Status: Acute Code(s): R79.89 - Other specified abnormal findings of blood chemistry (2) CAD (coronary artery disease): Status: Chronic Code(s): I25.10 - Atherosclerotic heart disease of [place] coronary artery without angina pectoris Medications at Discharge Home Medications buspirone 15 mg tablet 15 mg PO BID 02/23/13 citalopram 40 mg tablet 40 mg PO DAILY 02/23/13 diphenoxylate-atropine 2.5 mg-0.025 mg tablet 1 tab PO BID PRN PRN Diarrhea 02/23/13 aspirin 81 mg tablet,delayed release 81 mg PO DAILY@0800 #30 TABLETS 02/25/13 metoprolol tartrate 25 mg tablet 25 mg PO BID 08/06/14 bupropion HCl 150 mg tablet,12 hr sustained-release (Wellbutrin SR) 150 mg PO BID 09/26/21 cholecalciferol (vitamin D3) 50 mcg (2,000 unit) capsule 50 mcg PO DAILY 09/26/21 dicyclomine 10 mg capsule 10 mg PO TID PRN Cramps 09/26/21 fish, borage, flaxseed oils-omega 3,6,9 comb no.1 1,200 mg capsule ([place] 3-6-9) 1 cap PO DAILY 09/26/21 loratadine 10 mg capsule (Claritin Liqui-Gel) 10 mg PO DAILY 09/26/21 buprenorphine 5 mcg/hour weekly transdermal patch 1 patch transdermal QWEEK 08/14/24 gabapentin 400 mg capsule See Rx Instructions PO .COMPLEX PAIN 08/14/24 hydrocodone-acetaminophen 5-325mg 5mg-325mg 1 ea PO Q6H PRN Back pain 08/14/24 multivitamin with folic acid 400 mcg tablet (Thera) 1 tab PO DAILY SUPPLEMENT 04/21/25 solifenacin 10 mg tablet 10 mg PO DAILY 08/14/24 tadalafil 5 mg tablet 5 mg PO DAILY 08/14/24 atorvastatin 80 mg tablet 80 mg PO QHS #30 tabs 08/16/24 clopidogrel 75 mg tablet 75 mg PO DAILY #30 tabs 08/16/24 lisinopril 2.5 mg tablet 2.5 mg PO DAILY #30 tabs 08/16/24 Hospital Course Procedures 2-D Echocardiogram, Cardiac catheterization, EKG and - (Chest x-ray) Summary of Care Provided Minutes Spent on Discharge: 39 Hospital Course: Mr. Rodriguez is a 69-year-old male with a known history of coronary artery disease and previous stenting in 2009 who presented to the emergency department at [facility] on 08/14/2024 with chief complaint of chest pain. Patient reported that his symptoms started on the morning of presentation and initiated on the right side of his chest and radiated to his right arm. Initially it did not sound cardiac in nature so he was given some Toradol and lorazepam in the emergency department and he did have complete resolution of his symptoms however his initial troponin was 23 with a delta of 197. Given these findings the hospitalist was contacted for admission for chest pain rule out. Vital signs at the time of presentation showed temperature of 96.8, pulse was 72, respiratory was 18, blood pressure was 127/68 and pulse ox was 99% on room air. CBC showed mild leukocytosis at 13.8 which trended down prior to discharge. I suspect this is reactive. The rest of his CBC was unremarkable. Coags were normal. Chemistry panel was overtly unremarkable. Liver functions were normal. Again, his first troponin was 23 with a second troponin of 197 and his third troponin at 4 hours was 619. Given the rise of his troponin and the significance of it cardiology was consulted at the time of admission. Lipid panel was performed and showed a total cholesterol of 139, LDL of 70, HDL of 41. TSH was 1.48. Initial EKG showed no acute ischemic changes. Chest x-ray was unremarkable for acute findings. He was admitted to the telemetry floor and an echocardiogram and cardiology consult was placed. Echocardiogram showed an EF of 55% with mild eccentric aortic valve insufficiency, a mild less than 1 cm pericardial effusion and mild concentric LVH. Given his troponin rise he was taken to the [facility] and found to have stenosis in the proximal to mid LAD. Drug-eluting stent was placed in this region and aspirin was recommended indefinitely with Plavix for the next 6 months at least. He was maintained on his beta-xander. His statin was changed from simvastatin to atorvastatin 80 mg daily and low-dose lisinopril at 2.5 mg was added to his home regimen. He was monitored overnight postcardiac catheterization and had no ectopy. Prescriptions for his Plavix, lisinopril, and change in his statin were sent to local pharmacy prior to discharge. Patient was able to be discharged in stable condition on 08/16/2024 to home. I have asked him to follow-up with his primary care physician within the next 2 weeks and with cardiology within the next 2 weeks. He is to call for an appointment. Importance of dual antiplatelet therapy was discussed with the patient and all his medications and side effects were reviewed prior to discharge. Patient voiced understanding. Discharge diagnoses: Chest pain secondary to acute coronary syndrome Elevated troponin Leukocytosis CAD Essential hypertension Hyperlipidemia Chronic pain Depression Anxiety Tobacco abuse History of alcohol abuse Tourette syndrome Physical Exam Const alert, oriented x3, no apparent distress, average body habitus, no limitations and well nourished Constitutional Narrative: Upper middle-aged, white male, sitting up on the edge of the bed, eating dinner, appears comfortable, nontoxic General Appearance: cooperative, comfortable, well kempt and well developed Orientation / Consciousness: awake, oriented to person, oriented to place and oriented to time Exam Limitations: no limitations HEENT normocephalic, head/scalp atraumatic, hearing grossly normal bilaterally and moist oral mucous membranes HEENT Narrative: Dentition is poor, Mallampati is 2, no thrush Eyes EOMs intact bilaterally and conjunctivae normal Eyes Narrative: No scleral icterus Neck supple Neck Narrative: Trachea midline Resp normal respiratory effort, no retractions, no use of accessory muscles and clear to auscultation bilaterally Resp Narrative: Diffusely diminished but clear Auscultation: Negative for rales, rhonchi or wheezes Cardio regular rate, regular rhythm, S1 normal heart sound, S2 normal heart sound, no murmurs, no rub, no gallops and no clicks GI normal to inspection, nondistended, normoactive bowel sounds, soft to palpation and non-tender Extremity no clubbing, cyanosis or edema Extremity Narrative: Pedal and radial pulses are 2+ bilaterally, right wrist postprocedure dressing remains clean dry and intact Skin skin turgor normal, no jaundice, no petechiae and no mottling Neuro oriented x3, moves all extremities and no focal motor deficits Neuro Narrative: Good strength throughout bilateral upper lower extremities Speech: speech normal Psych affect normal Psych Narrative: Very pleasant, interacts appropriately Weight / BMI Weight Weight: 81.4 kg Body Mass Index (BMI) 25.7 ABG / Lab / Microbiology Data 08/16/24 05:35 08/16/24 05:35 Laboratory: Laboratory Results - last 24 hr 08/15/24 10:43: Activated Clotting Time 302 H 08/15/24 11:14: Activated Clotting Time 256 H 08/16/24 05:35: WBC 12.3 H, RBC 4.29 L, Hgb 14.3, Hct 41.6, MCV 97.0 H, MCH 33.3 H, MCHC 34.4, RDW Std Deviation 44.0 H, RDW Coeff of Jacy 12.4, Plt Count 159, MPV 10.5, Sodium 139, Potassium 4.0, Chloride 106, Carbon Dioxide 23.3, Anion Gap 10, BUN 16, Creatinine 0.77, Estim Creat Clear Calc 89.98, Est GFR (MDRD) Non-Af 97, BUN/Creatinine Ratio 20.6 H, Glucose 84, Calcium 8.8, Phosphorus 3.1, Magnesium 2.1, Total Bilirubin 0.72, AST 25, ALT 10, Alkaline Phosphatase 62, Total Protein 6.4, Albumin 3.7, Globulin 2.7, Albumin/Globulin Ratio 1.4 Radiography Diagnostic Testing: Radiology Impression Echocardiogram 08/14/24 15:33 Interpretation Summary Normal LV size. Left ventricular systolic function is normal. The left ventricular ejection fraction is 55 %. Mild (1+) eccentric aortic valve insufficiency. Small (<1.0 cm) pericardial effusion. Mild concentric left ventricular hypertrophy. Ordering Physician: Merle Karimi Referring Physician: MARIA VICTORIA SWETA Performed By: Lizbeth Baugh RDCS D/C Instructions Discharge Diet: Low fat / Low cholesterol Discharge Activity: Return to Normal Activity Lifting Restrictions: Do not lift over 10 pounds with the right upper extremity for the next 3-5 DC O2, CPAP, BIPAP Needs Home O2 Discharge instructions: No Meaningful Use Info Meaningful Use Meaningful Use Diagnoses (Choose all that apply): None applicable Ischemic Stroke Statin Dosing Therapy Reference: STATIN DOSE THERAPY REFERENCE: * Patients > 75 years receive moderate or high dose statin therapy. * Patients 75 years or YOUNGER should receive HIGH intensity statin dose unless contraindicated. You will be required to document reason for non-treatment if statin daily dose does not meet guidelines. HIGH DOSE STATIN THERAPY DAILY Atorvastatin > than or = to 40 mg Rosuvastatin > than or = to 20 mg Amlodipine + Atorvastatin > than or = to 2.5/40 mg Ezetimibe + Simvastatin 10/80 mg Simvastatin 80mg Discharge Plan Admission Admit Date/Time: 08/14/24 14:04 Primary Reason for Your Visit: Chest pain Attending Provider: Precious Ontiveros Primary Care Provider: Maria Victoria Escobar Consulting Providers: Pepito Tse; Merle Karimi Discharge Orders/Prescriptions Prescriptions: New atorvastatin 80 mg Tablet 80 mg PO QHS Qty: 30 1RF clopidogrel 75 mg Tablet 75 mg PO DAILY Qty: 30 5RF lisinopril 2.5 mg Tablet 2.5 mg PO DAILY Qty: 30 1RF Continued bupropion HCl [Wellbutrin SR] 150 mg tablet sustained-release 12 hr 150 mg PO BID dicyclomine 10 mg capsule 10 mg PO TID PRN (Reason: Cramps) Claritin Liqui-Gel 10 mg capsule 10 mg PO DAILY [place] 3-6-9 1,200 mg capsule 1 cap PO DAILY cholecalciferol (vitamin D3) 50 mcg (2,000 unit) capsule 50 mcg PO DAILY citalopram 40 MG tablet 40 mg PO DAILY Patient Comments: PT STATES HE IS OUT OF IT NOW buspirone 15 MG tablet 15 mg PO BID diphenoxylate-atropine 1 TABLET tablet 1 tab PO BID PRN PRN (Reason: Diarrhea) Patient Comments: FOR IBS DIARRHEA aspirin 81 MG tablet 81 mg PO DAILY@0800 Qty: 30 0RF metoprolol tartrate 25 MG tablet 25 mg PO BID Patient Comments: gabapentin 400 mg capsule See Rx Instructions PO .COMPLEX Rx Instructions: orally 2AM, 1 AT 3PM, 1AT 7PM, AND 2HS; solifenacin 10 mg tablet 10 mg PO DAILY buprenorphine 5 mcg/hour patch weekly 1 patch transdermal QWEEK tadalafil 5 mg tablet 5 mg PO DAILY hydrocodone-acetaminophen 1 EACH tablet 1 ea PO Q6H PRN multivitamin with folic acid [Thera] 1 TABLET tablet 1 tab PO DAILY Discontinued simvastatin 10 MG tablet 10 mg PO QHS Referrals / Follow Up: Pepito Tse MD [Med Staff - Active Staff] - Within 2 Weeks Maria Victoria Escobar DO [Primary Care Provider] - Within 2 Weeks Disposition Disposition (needs filled in before D/C Order can be placed): Home, Self Care Charges/Coding Visit Charges Inpatient E&M: 79382 Disch Hosp >30min
--- NOTE | 2024-08-16 10:32 | CASEMGMT ---
Patient has order for discharge. RN CM in to discuss needs at discharge. Patient denies needs or help at discharge. Patient had no further questions or concerns.
--- NOTE | 2024-08-16 10:51 | PHA.DC.MC.R ---
Pharmacy [facility] has performed discharge medication reconciliation and counseling for this patient. 1. ATORVASTATIN 80MG PO QHS- STOP SIMVASTATIN 2. CLOPIDOGREL 75MG PO DAILY 3. LISINOPRIL 2.5MG PO DAILY The patient's discharge medication list was reviewed for discrepancies and discrepancies were resolved. The patient was counseled on the following discharge medications and changes in medications for homegoing were reviewed. The Reason for Use, instructions for use, and potential side effects were reviewed for all new medications. The patient's questions regarding all of their medications were answered. The patient was able to verbally demonstrate an understanding of their discharge medications. Medications at Discharge Home Medications buspirone 15 mg tablet 15 mg PO BID 02/23/13 citalopram 40 mg tablet 40 mg PO DAILY 02/23/13 diphenoxylate-atropine 2.5 mg-0.025 mg tablet 1 tab PO BID PRN PRN Diarrhea 02/23/13 aspirin 81 mg tablet,delayed release 81 mg PO DAILY@0800 #30 TABLETS 02/25/13 metoprolol tartrate 25 mg tablet 25 mg PO BID 08/06/14 bupropion HCl 150 mg tablet,12 hr sustained-release (Wellbutrin SR) 150 mg PO BID 09/26/21 cholecalciferol (vitamin D3) 50 mcg (2,000 unit) capsule 50 mcg PO DAILY 09/26/21 dicyclomine 10 mg capsule 10 mg PO TID PRN Cramps 09/26/21 fish, borage, flaxseed oils-omega 3,6,9 comb no.1 1,200 mg capsule ([place] 3-6-9) 1 cap PO DAILY 09/26/21 loratadine 10 mg capsule (Claritin Liqui-Gel) 10 mg PO DAILY 09/26/21 buprenorphine 5 mcg/hour weekly transdermal patch 1 patch transdermal QWEEK 08/14/24 gabapentin 400 mg capsule See Rx Instructions PO .COMPLEX PAIN 08/14/24 hydrocodone-acetaminophen 5-325mg 5mg-325mg 1 ea PO Q6H PRN Back pain 08/14/24 multivitamin with folic acid 400 mcg tablet (Thera) 1 tab PO DAILY SUPPLEMENT 08/14/24 solifenacin 10 mg tablet 10 mg PO DAILY 08/14/24 tadalafil 5 mg tablet 5 mg PO DAILY 08/14/24 atorvastatin 80 mg tablet 80 mg PO QHS #30 tabs 08/16/24 clopidogrel 75 mg tablet 75 mg PO DAILY #30 tabs 08/16/24 lisinopril 2.5 mg tablet 2.5 mg PO DAILY #30 tabs 08/16/24
== END 2024-08-16 09:06 | disposition home or self-care (01) ==
LOC: ED 14:06 → PCU 14:17
PROVIDERS: Internal Medicine Cardiovascular Disease; Admitting Provider Internal Medicine; Emergency Provider Emergency Medicine; PCP Internal Medicine; Visit Provider Internal Medicine
DX: I25.119 Atherosclerotic heart disease of native coronary artery with unspecified angina pectoris (principal); D72.829 Elevated white blood cell count, unspecified; Z82.49 Family history of ischemic heart disease and other diseases of the circulatory system; E78.5 Hyperlipidemia, unspecified; R79.89 Other specified abnormal findings of blood chemistry; F17.210 Nicotine dependence, cigarettes, uncomplicated; F41.9 Anxiety disorder, unspecified; F95.2 Tourette's disorder; Z79.82 Long term (current) use of aspirin; I10 Essential (primary) hypertension; I08.0 Rheumatic disorders of both mitral and aortic valves; Z79.899 Other long term (current) drug therapy; F32.A Depression, unspecified; K21.9 Gastro-esophageal reflux disease without esophagitis; K58.0 Irritable bowel syndrome with diarrhea; G89.29 Other chronic pain; Z95.5 Presence of coronary angioplasty implant and graft
CPT/HCPCS: 36415; 71045; 80048; 80053; 80061; 80076; 83735; 84100; 84443; 84484; 85025; 85027; 85347; 85379; 85610; 85730; 92928; 93005; 93306; 93454; 96361; 96365; 96366; 96375; 96376; 99152; 99153; 99221; 99285; C1725; Q9967; A4216; C1769; C1874; C1887; C1894; C9600; G0378

== ENCOUNTER → 2024-08-21 | Outpatient (CLI) | payer MEDICARE, SELFPAY ==
[2024-08-21 17:27] LABS: Amphetamine Urine NEGATIVE (<1000 ng/mL); Barbiturate Urine NEGATIVE (< 200 ng/mL); Benzodiazepine Urine NEGATIVE (< 200 ng/mL); Buprenorphine Urine NEGATIVE (< 200 ng/mL); Cocaine Urine NEGATIVE (< 300 ng/mL); Fentanyl, Urine NEGATIVE; Methadone Urine NEGATIVE (< 300 ng/mL); Opiates Urine PRESUMPTIVE POSITIVE (< 300 ng/mL); Oxycodone, Urine NEGATIVE (< 100 ng/mL); PCP Urine NEGATIVE (< 25 ng/mL); THC Urine NEGATIVE (< 50 ng/mL)
== END | disposition home or self-care (01) ==
LOC: LAB 16:21
PROVIDERS: PCP Internal Medicine; Referring Provider Anesthesiology Pain Medicine; Visit Provider Anesthesiology Pain Medicine
DX: F11.20 Opioid dependence, uncomplicated (principal)
CPT/HCPCS: 80307

== ENCOUNTER → 2025-01-17 | Outpatient (CLI) | payer MEDICARE, SELFPAY ==
[2025-01-17 16:16] LABS: Barbiturate Urine NEGATIVE (< 200 ng/mL); Benzodiazepine Urine NEGATIVE (< 200 ng/mL); PCP Urine NEGATIVE (< 25 ng/mL); THC Urine PRESUMPTIVE POSITIVE (< 50 ng/mL)
== END | disposition home or self-care (01) ==
LOC: LAB 14:40
PROVIDERS: PCP Internal Medicine; Referring Provider Anesthesiology Pain Medicine; Visit Provider Anesthesiology Pain Medicine
DX: F11.20 Opioid dependence, uncomplicated (principal)
CPT/HCPCS: 80307

== ENCOUNTER → 2025-01-19 | Outpatient (CLI) | payer MEDICARE, SELFPAY ==
--- NOTE | 2025-01-19 13:51 | MRI_ITS ---
PROCEDURE: SPINE CERVICAL (ROUTINE) 01/19/2025 REASON FOR EXAM: CERVICAL RADICULOPATHY TECHNIQUE: Procedure Code: MRISPC Modality: MR Procedure: SPINE CERVICAL (ROUTINE) Multiplanar and multisequence images were obtained without IV contrast administration. COMPARISON: MRI cervical spine 05/21/2021 FINDINGS: The visualized posterior fossa contents appear within normal limits. The normal cervical lordosis is maintained. The atlantooccipital and atlantoaxial joints appear normally aligned. The cervical vertebral bodies are normal in height. The cervical vertebral bodies are normal in alignment. The cervical bone marrow signal is within normal limits. Multilevel disc desiccation and intervertebral disc space height loss. There is no evidence of cervical spinal cord signal abnormality. C2-C3: Central disc protrusion indents the ventral thecal sac. Bilateral facet arthrosis and uncovertebral spurring contribute to [id number] bilateral neural foraminal narrowing. C3-C4: Posterior disc osteophyte complex, bilateral facet arthrosis, and uncovertebral spurring contribute to mild spinal canal stenosis. [id number] bilateral neural foraminal narrowing. C4-C5: Posterior disc osteophyte complex, bilateral facet arthrosis, and uncovertebral spurring contribute to mild spinal canal stenosis. Moderate bilateral neural foraminal narrowing. C5-C6: Posterior disc osteophyte complex, bilateral facet arthrosis, and uncovertebral spurring contribute to mild spinal canal stenosis. Moderate bilateral neural foraminal narrowing. C6-C7: No disc herniation. Bilateral facet arthrosis and uncovertebral spurring contribute to moderate right and mild left neural foraminal narrowing. C7-T1: No significant spinal canal stenosis or neural foraminal narrowing. Polypoid mucosal thickening in the left maxillary sinus. MRI/Spine Cervical (Routine) IMPRESSION: Cervical spondylosis without high-grade spinal canal stenosis. Multiple levels of moderate neural foraminal stenosis. Additional details as discussed above. Reading Location: [id number]
== END | disposition home or self-care (01) ==
LOC: MRI 13:48
PROVIDERS: PCP Internal Medicine; Referring Provider Anesthesiology Pain Medicine; Visit Provider Anesthesiology Pain Medicine
DX: M54.12 Radiculopathy, cervical region (principal)
CPT/HCPCS: 72141